=== PATIENT | male | born 1965 | race Caucasian/White ===

== ENCOUNTER 2024-07-04 13:53 | Inpatient (IN) | payer MEDICAID, SELFPAY ==
[2024-07-04] VITALS (9 sets, daily range): BP systolic 121–130; BP diastolic 73–94; PULSE 73–89; RESP 14–96; TEMP 36.4–36.9; O2SAT 95–98; BMI 23.7
--- NOTE | 2024-07-04 14:45 | EKG_ITS ---
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
--- NOTE | 2024-07-04 14:45 | XR_ITS ---
Examination: PA chest single view TECHNIQUE:: Upright PA chest single view Exam date and time: July 04, 2024 at 1504 hours Comparison November 10, 2023 INDICATIONS: Chest pain difficulty breathing today. FINDINGS: Moderate enlargement cardiac contour Prominent vascular congestion Early septal edema at the lung bases Stable position cardiac leads IMPRESSION: Mild CHF
--- NOTE | 2024-07-04 14:51 | PD.EDRME ---
Rapid Medical Screening Exam RME Arrival date/time: 07/04/24 13:53 59-year-old male presents emergency department with complaints of shortness of breath, history of CHF A-fib. I have greeted and performed a focused initial assessment of this patient. Initial appropriate labs ordered at this time. A comprehensive ED assessment and evaluation of the patient and analysis of all test and completion of medical decision making process will be conducted by additional ED provider. Chief Complaint: Shortness of Breath/Dyspnea Time Seen by Provider: 07/04/24 14:13 Vital signs: Vital Signs Temperature 98.5 F 07/04/24 14:22 Pulse Rate 78 07/04/24 14:22 Respiratory Rate 24 H 07/04/24 14:22 Blood Pressure 127/85 H 07/04/24 14:22 Pulse Oximetry (%) 95 07/04/24 14:22 Oxygen Delivery Method Room Air 07/04/24 14:22
[2024-07-04 15:27] LABS: Basophils # (Auto) 0.1 Thou/mm3 (0.0-0.2); Basophils % (Auto) 1 % (0-2.5); Eosinophils % (Auto) 0 % (0-10); Hematocrit 44.3 % (41.0-53.0); Hemoglobin 14.4 g/dL (13.5-16.0); Immature Granulocytes % (Auto) 0 % (0-0); Immature Granulocytes Auto 0.03 Thou/mm3 (0.00-0.00); Lymphocytes % (Auto) 10 % (10-50); Mean Corpuscular HGB Conc 32.5 g/dl (31.0-37.0); Mean Corpuscular Hemoglobin 28.6 pg (25.0-35.0); Mean Corpuscular Volume 88 fL (80-100); Monocytes # (Auto) 0.9 Thou/mm3 (0.0-0.8); Monocytes % (Auto) 9 % (0-12); Neutrophils # (Auto) 7.9 Thou/mm3 (1.8-7.7); Neutrophils % (Auto) 79 % (37-80); Nucleated Red Blood Cell % 0 /100 WBC (0); Platelet Count 275 Thou/mm3 (140-440); RDW Standard Deviation 54.4 fL (35.1-43.9); Red Blood Count 5.03 Miln/mm3 (4.50-5.90)
[2024-07-04 15:44] LABS: INR 1.4 (0.9-1.3); Partial Thromboplastin Time 28.8 Seconds (22.0-36.0); Prothrombin Time 14.6 Seconds (9.0-12.2)
[2024-07-04 16:03] LABS: Alanine Aminotransferase 60 U/L (10-49); Albumin, Serum 4.2 gm/dL (3.4-4.8); Albumin/Globulin Ratio 1.4 (1.2-2.2); Alkaline Phosphatase 177 U/L (46-116); Anion Gap 8 (7-16); Aspartate Amino Transferase 72 U/L (0-34); B-Type Natriuretic Peptide > 3280 pg/mL (0-100); BUN/Creatinine Ratio 22 Ratio (12-20); Blood Urea Nitrogen 55 mg/dL (9-23); Calcium 9.1 mg/dL (8.3-10.6); Calcium (Corrected) 9.1 mg/dL (8.5-10.1); Carbon Dioxide 24.3 mMol/L (20.0-31.0); Chloride 103 mMol/L (98-107); Creatinine (Component) 2.5 mg/dL (0.6-1.3); Estimated Creatinine Clearance 35.1 mL/min (>60); Globulin 3.1 gm/dL (2.3-3.5); Glucose 92 mg/dL (74-106); Lipase 41 U/L (12-53); Magnesium 2.8 mg/dL (1.6-2.6); Osmolality,Calculated 285 (275-295); Potassium 4.9 mMol/L (3.4-5.1); Sodium 135 mMol/L (136-145); Total Protein 7.3 gm/dL (5.7-8.2); eGFR 29 See Note
[2024-07-04 16:16] LABS: Troponin I 0.258 ng/mL (0.0-0.045)
--- NOTE | 2024-07-04 17:41 | PD.EDSOB ---
ED SOB =RME/HPI General Chief Complaint: Shortness of Breath/Dyspnea Stated Complaint: TROUBLE BREATHING FROM CHF Time Seen by Provider: 07/04/24 14:13 Arrival date/time: 07/04/24 13:53 RME / HPI RME / HPI Narrative: 07/04/24 13:53 59-year-old male known case of CHF, A-fib status post pacemaker placement, coronary artery disease status post bypass surgery, hyperlipidemia, came to the ED due to shortness of breath for the past 5 days. Patient reported that his symptoms started with exertional dyspnea however his condition continued to worsen over time and now he has shortness of breath at rest. He also reported severe orthopnea and paroxysmal nocturnal dyspnea associated with increased leg swelling and increased body weight. He reported that he has been using his medications regularly however recently he has been drinking excessive amount of water. Patient denied any chest pain, fever, chills, syncope or presyncopal episodes. Related Data Home Medications ?Medication ?Instructions ?Recorded ?Confirmed Benazepril Hcl * (LOTENSIN *) 10 mg PO QDAY #0 tabs 05/12/16 clopidogrel 75 mg tablet (Plavix) 25 mg PO QDAY #0 tabs 05/12/16 furosemide 20 mg tablet (Lasix) 20 mg PO QDAY #0 tabs 05/12/16 lovastatin 20 mg tablet 20 mg PO HS #0 tabs 05/12/16 metoprolol tartrate 25 mg tablet 25 mg PO BID #0 tabs 05/12/16 potassium chloride 10 mEq 10 meq PO QDAY #0 tabs 05/12/16 tablet,extended release (Klor-Con) Previous Rx's ?Medication ?Instructions ?Recorded Hydrocodone/Acetaminophen * (NORCO 1 - 2 tab PO Q4H PRN PAIN #15 tabs 05/12/16 5/325 *) Sulfamethoxazole/Trimethoprim DS * 1 tab PO BID abscess #14 tabs 05/12/16 (BACTRIM DS *) Allergies Allergy/AdvReac Type Severity Reaction Status Date / Time acetaminophen [From [place]] Allergy Intermediate NAUSEA, Verified 07/04/24 13:56 HALLUCINATE hydrocodone [From [place]] Allergy Intermediate NAUSEA, Verified 07/04/24 13:56 HALLUCINATE ED Exam Narrative Physical exam: GEN: AOx3, able to speak full sentences however looks short of breath, sitting in semisitting position HEENT: NC/AC oral mucosa moist, neck supple CVS: RRR, S1-S2 present, elevated JVD, no murmurs appreciated RESP: Fine crepitations bilaterally GI: soft,non distended, non tender, NBS MSK: able to move all 4 limbs, +3 lower extremity edema SKIN: warm and dry 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 Course Quality Measures none Orders Category Date Time Status Special Education Resource Room Teacher STAT Care 07/04/24 14:45 Active EKG (ED ONLY) *Do not use* NOW Care 07/04/24 14:45 Completed Insert IV STAT Care 07/04/24 14:45 Active EKG (ED Only) Stat Exams 07/04/24 14:45 Draft XR chest 1V portable Stat Exams 07/04/24 14:45 Completed B-Type Natriuretic Peptide Stat Lab 07/04/24 15:12 Completed CBC Stat Lab 07/04/24 15:12 Completed Comprehensive Metabolic Panel Stat Lab 07/04/24 15:12 Completed Lipase Stat Lab 07/04/24 15:12 Completed Magnesium Stat Lab 07/04/24 15:12 Completed Partial Thromboplastin Time Stat Lab 07/04/24 15:12 Completed Prothrombin Time with INR Stat Lab 07/04/24 15:12 Completed Troponin I Stat Lab 07/04/24 15:12 Completed Bumetanide Inj [Bumex Inj] Med 07/04/24 15:04 Discontinued 1 mg IVP X1 ONE Vital Signs Vital signs: Vital Signs Temperature 98.5 F 07/04/24 14:22 Pulse Rate 78 07/04/24 14:22 Respiratory Rate 24 H 07/04/24 14:22 Blood Pressure 127/85 H 07/04/24 14:22 Pulse Oximetry (%) 95 07/04/24 14:22 Oxygen Delivery Method Room Air 07/04/24 14:22 Shortness of Breath / Dyspnea MDM Narrative MDM Narrative:: Patient was found to have CHF exacerbation, troponin at baseline however BNP found to be more than 3200, serum creatinine 2.5, elevated T bilirubin and AST and ALT 3.0, 72, 60 respectively, troponin ,0.258 baseline 0.452 Patient found to have sepsis with exacerbation Patient data External records reviewed:: [facility] previous records Clinical information provided by:: patient Social determinants that could affect healthcare access:: none Patient has the following chronic illnesses:: Hypertension, diabetes CHF, A-fib, coronary artery disease How is presenting disease/condition affected by chronic disease/condition?: caused by Evaluation data The following diagnostics were reviewed and interpreted by me:: lab results, radiology exam(s) and EKG tracing(s) Lab and/or radiology exams considered but not ordered:: None Interpretation Summary: CHF exacerbation Medications / Prescriptions Medications or Prescriptions considered but not ordered:: None Medication administrations:: Medication Administration History Discontinued Medications Bumetanide (Bumetanide Inj 0.25 Mg/Ml Vial 4 Ml) 1 mg IVP X1 ONE Stop: 07/04/24 15:05 As above if given Consultations Consultation(s) initiated? (list below): Yes Diagnosis Shortness of Breath Differential Diagnosis: congestive heart failure and other Most likely diagnosis given after review of the tests above:: CHF exacerbation Admission Indicated Admission indicated?: indicated Admission Request Was there a request for admission?: Yes Admission Attestation Admission request attestation: Discussed case with [] from Hospitalist service regarding admission. Discussed patients ED course, exam findings, labs, and radiology results. The Hospitalist [agrees,declines] to accept the patient for admission. Disposition Plan Disposition Plan: Admit Discharge Plan Plan Patient Disposition: Admit Acute Care w/in Hospital Prescriptions/Referrals Prescriptions/Med Rec: No Action potassium chloride [Klor-Con 10] 10 MEQ tablet extended release 10 meq PO QDAY Qty: 0 clopidogrel [Plavix] 75 MG tablet 25 mg PO QDAY Qty: 0 furosemide [Lasix] 20 MG tablet 20 mg PO QDAY Qty: 0 lovastatin 20 MG tablet 20 mg PO HS Qty: 0 metoprolol tartrate 25 MG tablet 25 mg PO BID Qty: 0 Hydrocodone/Acetaminophen * (NORCO 5/325 *) 1 TAB tablet 1 - 2 tab PO Q4H PRN (Reason: PAIN) Qty: 15 0RF Rx Instructions: FOR PAIN Sulfamethoxazole/Trimethoprim DS * (BACTRIM DS *) 1 TAB tablet 1 tab PO BID Qty: 14 0RF Benazepril Hcl * (LOTENSIN *) 10 MG tablet 10 mg PO QDAY Qty: 0 Referrals: Dom Tineo MD [Primary Care Provider] - In 1 week Problem List Clinical Impression: Congestive heart failure Patient/Caregiver Discharge Instructions Print Language: Kazakh Stand Alone Forms: [employer] Award Info., Patient Portal Info Letter
--- NOTE | 2024-07-04 18:17 | XR_ITS ---
Examination: Abdomen sonogram, Limited Date and time of exam: July 04, 2024 2124 hrs. Indications: Elevated total bilirubin on laboratory examination today right upper abdominal pain Technique: Real-time george scale transabdominal sonographic images of the upper abdomen obtained. Findings: Normal gallbladder Normal common bile duct 0.3 cm Pancreatic head 1.7 cm Liver 17.4 cm smooth contour no focal liver lesions Normal hepatopedal portal venous oh Patent IVC Impression: Normal gallbladder Normal common bile duct Mild hepatomegaly no focal liver lesions
--- NOTE | 2024-07-04 18:27 | EVENTNT_ITS ---
<Statement entered by Karson Leach MD - 07/10/24 17:31> Attending attestation: I reviewed above note and agree with findings and plans. I have also personally examined the patient with medicine team and went over assessment and plan with medical team including [facility] internship and resident physician. Documentation for date of: 07/04/24 Event Note Event Note: Hospitalist team was contacted for evaluation for admission for this patient, patient in ED lobby en route to ED room. In summary, patient is a 59 year old male with history of CHF, atrial fibrillation s/p pacemaker, and CAD s/p bypass surgery who presented to the ED for shortness of breath, was found to have mild CHF on CXR but BNP > 3280. He was noted to have increase in bilateral lower extremities with shortness of breath and elevated BNP, treated with bumex 1mg IV x1. Of note, patient also had total bilirubin of 3.0 and troponin of 0.258. Due to timing of admit call, case has been relayed to on-coming hospitalist nocturnal team who will review the case and consider patient for admission. ED team has been made aware of the pending hospitalist consultation. Patient case discussed with attending physician Dr. Haylee Mckeon, DO PGY-3
[2024-07-04] MEDS: BUMETANIDE INJ 0.25 MG/ML VIAL 4 ML 1 MG IVP (19:11)
--- NOTE | 2024-07-04 20:31 | ECHO_ITS ---
Transthoracic Echo Report Ht (in): 73 Wt (lb): 180 Exam Location: Portable Status: Emergency Rd Scientist: Marly Walker Indications: Procedure Performed: BP: 136 / 88 HR: 83 Technical Quality: Fair MEASUREMENTS (Male / Female) Normal Values 2D ECHO LV Diastolic Diameter PLAX 8.0 cm 4.2 - 5.9 / 3.9 - 5.3 cm LV Systolic Diameter PLAX 7.4 cm IVS Diastolic Thickness 0.8 cm 0.6 - 1.0 / 0.6 - 0.9 cm LVPW Diastolic Thickness 0.9 cm 0.6 - 1.0 / 0.6 - 0.9 cm LV Relative Wall Thickness 0.2 LVOT Diameter 2.1 cm LA Volume Index 68.9 cm?/m? 16 - 28 cm?/m? Ascending Aorta Diameter 2.6 cm M-MODE Aortic Root Diameter MM 2.4 cm LA Systolic Diameter MM 4.7 cm LA Ao Ratio MM 2.0 MV E Point Septal Separation 1.5 cm AV Cusp Separation MM 1.6 cm DOPPLER AV Peak Velocity 306.3 cm/s AV Peak Gradient 37.5 mmHg AV Mean Gradient 21.2 mmHg AV Velocity Time Integral 59.3 cm AI Peak Velocity 500.0 cm/s AI Peak Gradient 100.0 mmHg AI Pressure Half Time 330.0 ms LVOT Peak Velocity 43.8 cm/s LVOT Peak Gradient 0.8 mmHg LVOT Velocity Time Integral 9.0 cm LVOT Cardiac Index 1263.3 cm?/min?m? AV Area Cont Eq vti 0.5 cm? AV Area Cont Eq pk 0.5 cm? MV Peak Velocity 140.0 cm/s MV Peak Gradient 7.8 mmHg MV Mean Velocity 85.6 cm/s MV Mean Gradient 3.0 mmHg MV Area PHT 5.5 cm? MR Peak Velocity 433.0 cm/s MR Peak Gradient 75.0 mmHg Mitral E Point Velocity 143.0 cm/s Mitral A Point Velocity 58.9 cm/s Mitral E to A Ratio 2.4 LV E' Lateral Velocity 3.6 cm/s Mitral E to LV E' Lateral Ratio 39.8 LV E' Septal Velocity 2.7 cm/s Mitral E to LV E' Septal Ratio 52.6 TR Peak Velocity 337.3 cm/s TR Peak Gradient 45.5 mmHg FINDINGS Left Ventricle Severely dilated. Severe systolic dysfunction. Severe global hypokinesis. The ejection fraction is v isually estimated at 15-20%. Right Ventricle The right ventricle is moderatley dilated. RV dysfunction. The estimated right ventricular systolic pressure, 60mmHg. RAP 15. pacing wire present. Left Atrium The left atrium is severely dilatd. Right Atrium The right atrium is severely dilated. Atrial Septum The interatrial septum appears normal with no evidence of a shunt. Aorta The aorta is normal by two-dimensional, color flow and Doppler interrogation. Mitral Valve The mitral valve is mildly MAC. There is mild mitral valve regurgitation. Aortic Valve The aortic valve is trileaflet. Moderate stneosis, mean gradient 24mmHg, vmax 3.4m/s. There is moder ate aortic valve regurgitation. Tricuspid Valve The tricuspid valve is normal by two-dimensional, color flow and Doppler interrogation. There is mod erate tricuspid valve regurgitation. Pulmonic Valve There is mild pulmonic valve regurgitation. Vessels The pulmonary artery appears normal. The inferior vena cava pulmonary and hepatic veins appear mildl y dilated. Pericardium The pericardium is normal by two-dimensional imaging. There is no significant pericardial effusion. CONCLUSIONS Dilated cardiomyopathy markedly dilated left ventricle measuring 7.9 cm severe global hypokinesis ej ection fraction of 15%. Low-flow low gradient severe calcific aortic stenosis with aortic velocity 3.4 m/s peak gradient of 45 mmHg aortic valve area 0.5 cm?. There is also evidence of moderate to severe aortic regurgitation. Mitral valve thickening annulus calcification mild to moderate mitral regurgitation. 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
[2024-07-04] MEDS: CLOPIDOGREL BISULFATE 75 MG TABLET PO (21:01)
--- NOTE | 2024-07-04 21:07 | ESHP_ITS ---
Documentation for date of: 07/04/24 [facility] History of Present Illness History of present illness: CC: Shortness of Breath at rest Patient is a 59-year-old male with a past medical history of hypertension, hyperlipidemia, CHF, atrial fibrillation s/p pacemaker on amiodarone 200 mg daily, and history of CAD status post CABG [address] Tineo in [place] for cardiology, Dr. Barlow for nephrology, and PCP of [facility]. Patient stated increasing shortness of breath began 1 week ago after increasing his water uptake. 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 Patient is unsure of how many bottles of water he was drinking during that time. Noticed 3 to 5 pound weight gain over the past 5 days. Positive for orthopnea, increasing shortness of breath, and noticed some increasing lower extremity edema. Positive for paroxysmal nocturnal orthopnea, patient wakes up short of breath and is affecting his sleep on. Has to prop himself up at night. Stated 1 week ago also had increased chills for over 2 days and an episode of emesis, likely from an upper respiratory tract infection per patient. Patient admitted for CHF exacerbation & Acute BIRD on CKD. ER Course: Vitals: T98.5, HR 78, RR 24, BP 127/85, SpO2 95 RA BNP >3280 Troponin 0.258 Cxr: Moderate enlargement cardiac contou, Prominent vascular congestion, early septal edema at lung bases Renal Function BUN 55 Cr 2.5, GFR 29 AST 72, ALT 60, Alkaline Phosphatase 177 Mg 2.8 Liver U/S-Pending Medication: Bumex 1mg IVP X1 PMH: -HTN -HLD -CHF -CAD/CABG w/ 3 vessels -Afib, w/ pacemaker Home Medication: -Lisinopril 2.5 mg BID hold for BIRD -Levothyroxine 50 mg QDay -Bumex 1 mg BID -Amiodarone 200 mg QDay -Clopidogrel 75 mg HS -Atorvastatin 80 mg HS -Ezetimibe 10 mg QDay Social History: Denied Alcohol Use Denied illicit Drug use Never Smoker Denied Vaping Allergies: Allergic to [place] 5 mg->causes hallucinations. Code Status: Full Code Review of Systems Review of Systems Narrative Review of Systems: General appearance: YES weight change/3-5 lbs within the last week, NO fatigue, NO weakness, NO fever, YES chills for 2 days, this past Sunday , NO night sweats, No cough Skin: YES rash bilaterally on dorsal hands/secondary to lye from concrete, NO itching, NO sores, NO moles HEENT: NO Trauma, NO nausea, YES vomiting w/ chills this past Sunday, NO visual changes, NO blurry vision, NO double vision, NO tinnitus, NO vertigo, NO ear discharge, NO rhinorrhea, NO stuffiness, NO sneezing, NO allergy, NO epistaxis. NO Hoarseness, NO sore throat, NO swollen neck. Cardiac: NO Palpitations, YES dyspnea on exertion, YES orthopnea, YES paroxysmal nocturnal dyspnea, YES edema Respiratory: YES Shortness of Breath, NO Wheezing, YES Cough, NO Sputum, NO hemoptysis GI:YES appetite, NO nausea, YES vomiting (on Sunday), NO dysphagia, NO changes in bowel frequency, NO stool color, NO diarrhea, NO constipation, NO hemetemesis, NO hemorrhoids, NO melena, NO hematechezia, NO abdominal pain, NO jaundice Renal: NO frequency, NO hesitancy, NO urgency, NO hematuria, NO nocturia, NO incontinence MSK: NO muscle weakness, NO gout, NO arthritis, NO muscle stiffness Neuro: NO headaches, NO tremors, NO weakness, NO paralysis, NO seizures, NO loss of consciousness, NO numbness. Hem: NO anemia, NO easy bruising/bleeding, NO petechiae, NO purpura Endo: NO heat/cold intolerance, NO excessive sweating, NO polyuria, NO polydipsia, NO polyphagia, Unsure thyroid problems-does take medication, NO diabetes Pysch: NO mood, NO anxiety, NO depression Exam Vital Signs Temp Pulse Resp BP Pulse Ox O2 Del Method 98.2 F 89 14 130/94 H 96 Room Air 07/04/24 19:15 07/04/24 20:51 07/04/24 20:51 07/04/24 20:51 07/04/24 20:51 07/04/24 20:51 Narrative Exam General Appearance: Alert & Oriented X3, well-nourished male who is lying in bed in no acute distress w/ increased work of breathing but no accessory muscle use HEENT: Skull symmetrical and atraumatic. Conjunctivae pink and moist. Pupils equal, round, reactive to light and accommodation (PERRL). External ear without lesion or discharge. Straight, nares patient, mucosa pink appears dry, no discharge. No thyroid nodule appreciated. No cervical lymphadenopathy. Cardio: Normal Rate and Rhythm with S1 and S2 heart sounds. Possible murmur auscultated and increased at Mitral Area. No bruits on carotid auscultation. Yes peripheral edema, 2+ Lungs: Symmetric with good expansion. Chest and back non-tender. Breath sounds vesicular without crackles, wheezing or rhonchi Abdomen: Non-tender, Non-distended, Normal Reactive Bowel Sounds Neuro: Alert, cooperative, oriented to person, place, and time. Speech clear. CN grossly intact. Upper motor strength 5/5 and Lower motor strength 5/5. Sensation intact. Results: Labs 07/04/24 15:12 07/04/24 15:12 Labs: Short CBC 07/04/24 Range/Units 15:12 WBC 10.0 (3.8-10.6) Thou/mm3 Hgb 14.4 (13.5-16.0) g/dL Hct 44.3 (41.0-53.0) % Plt Count 275 (140-440) Thou/mm3 BMP 07/04/24 15:12 Sodium 135 L Potassium 4.9 Chloride 103 Carbon Dioxide 24.3 BUN 55 H Creatinine 2.5 H Glucose 92 Calcium 9.1 Cardiac Enzymes 07/04/24 Range/Units 15:12 Troponin I 0.258 H* (0.0-0.045) ng/mL Liver Function 07/04/24 Range/Units 15:12 Total Bilirubin 3.0 H (0.3-1.2) mg/dL AST 72 H (0-34) U/L ALT 60 H (10-49) U/L Alkaline Phosphatase 177 H (46-116) U/L Albumin 4.2 (3.4-4.8) gm/dL Quality Measures Quality Measures none Medications Home Medications and Allergies Home Medications ?Medication ?Instructions ?Recorded ?Confirmed ?Type Benazepril Hcl * (LOTENSIN *) 10 mg PO QDAY #0 tabs 05/12/16 History clopidogrel 75 mg tablet (Plavix) 25 mg PO QDAY #0 tabs 05/12/16 07/04/24 History furosemide 20 mg tablet (Lasix) 20 mg PO QDAY #0 tabs 05/12/16 History lovastatin 20 mg tablet 20 mg PO HS #0 tabs 05/12/16 History metoprolol tartrate 25 mg tablet 25 mg PO BID #0 tabs 05/12/16 History potassium chloride 10 mEq 20 meq PO MWF #0 tabs 05/12/16 07/04/24 History tablet,extended release (Klor-Con) B-complex with vitamin C 1 tab PO QDAY 07/04/24 07/04/24 History amiodarone 200 mg tablet 200 mg PO QDAY 07/04/24 07/04/24 History atorvastatin 80 mg tablet 80 mg PO QDAY 07/04/24 07/04/24 History bumetanide 1 mg tablet 1 mg PO BID 07/04/24 07/04/24 History calcitriol 0.5 mcg capsule 0.5 mcg PO QDAY 07/04/24 07/04/24 History ezetimibe 10 mg tablet 10 mg PO QDAY 07/04/24 07/04/24 History levothyroxine 50 mcg tablet 50 mcg PO QDAY 07/04/24 07/04/24 History lisinopril 2.5 mg tablet 2.5 mg PO BID 07/04/24 07/04/24 History Allergies Allergy/AdvReac Type Severity Reaction Status Date / Time acetaminophen [From [place]] Allergy Intermediate NAUSEA, Verified 07/04/24 13:56 HALLUCINATE hydrocodone [From [place]] Allergy Intermediate NAUSEA, Verified 07/04/24 13:56 HALLUCINATE Visit Medications Acetaminophen (Acetaminophen 325 Mg Tablet) 650 mg PO Q6H PRN PRN Reason: Mild Pain 1-3 or Fever >100.4 Stop: 08/03/24 20:27 Amiodarone HCl (Amiodarone Hcl 200 Mg Tablet) 200 mg PO QDAY CHARAN Stop: 08/04/24 08:59 Atorvastatin Calcium (Atorvastatin Calcium 20 Mg Tablet) 80 mg PO HS CHARAN Stop: 08/04/24 20:59 Bumetanide (Bumetanide Inj 0.25 Mg/Ml Vial 4 Ml) 1 mg IVP BIDD CHARAN Stop: 08/04/24 05:59 Clopidogrel Bisulfate (Clopidogrel Bisulfate 75 Mg Tablet) 75 mg PO HS CHARAN Stop: 08/03/24 20:59 Last Admin: 07/04/24 21:01 Dose: 75 mg Ezetimibe (Ezetimibe 10 Mg Tablet) 10 mg PO QDAY [facility] Stop: 08/04/24 08:59 Levothyroxine Sodium (Levothyroxine Sodium 25 Mcg Tablet) 50 mcg PO ACBR [facility] Stop: 08/04/24 05:59 Ondansetron HCl (Ondansetron Inj 2 Mg/Ml Inj 2 Ml) 4 mg IV Q6H PRN; Protocol PRN Reason: NAUSEA OR VOMITING Stop: 08/03/24 20:27 Potassium Chloride (Potassium Chloride 20 Meq Tabcr) 10 meq PO QDAY CHARAN Stop: 08/04/24 08:59 Discontinued Medications Bumetanide (Bumetanide Inj 0.25 Mg/Ml Vial 4 Ml) 1 mg IVP X1 ONE Stop: 07/04/24 15:05 Last Admin: 07/04/24 19:11 Dose: 1 mg Assessment & Plan Plan Patient is a 59-year-old male with a past medical history of hypertension, hyperlipidemia, CHF, atrial fibrillation s/p pacemaker on amiodarone 200 mg daily, and history of CAD status post CABG 3 vessels. Patient presented to emergency room with a chief complain of dyspnea over 1 week and admitted for CHF exacerbation & Acute BIRD on CKD. 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 About 1 week ago patient also experienced some chills and emesis which he attributes to a possible viral infection. Positive for orthopnea and paroxysmal nocturnal dyspnea. Positive for dyspnea and tachypnea during physical exam, RR 30. Cxr showed pulmonary vascular congestion. BNP >3280 DDx: Given history of CAD w/ CABG, arrhythmia or IL can not be ruled out. Possible murmur heard on physical exam. Troponinemia, likely NSTEMI Type II, demand ischemia secondary to CHF exacerbation. Hyperthyroidism less likely given no bradycardia or tachycardia on admission but can not be ruled out as patient is on Amio and on levothyroxine. Diagnostic: Vitals: T98.5, HR 78, RR 24, BP 127/85, SpO2 95 RA BNP >3280 Troponin 0.258 Cxr: Moderate enlargement cardiac contou, Prominent vascular congestion, early septal edema at lung bases Renal Function BUN 55 Cr 2.5, GFR 29 NYHA Class: II Well's Criteria 0 Plan: -Bumex 1 mg IVP BID -Amiodarone 200 mg PO QDay -Potassium Chloride 10 meq QDay -Atorvastatin 80 mg HS -Plavix -Ezetimibe 10 mg PO QDay -CBC -CMP -Mg and Phosphorous AM -Echo -Troponin for 9 PM -TSH -Lipid Panel -K>4 and Mg >2 -Fluid Restriction 1800 ml Per day -SpO <90%, support PRN -Daily Weights, Strict Ins and Outs, Fluid Striction (1800 ml) -Cardiac Diet -Cardiology Consult, appreciate recommendations. #BIRD on CKD #HTN Etiology: patient follow Dr. Barlow for CKD, which patient stated had improved during previous outpatient visit, patient unsure of CKD Stage. Previous Cr 1.7, October 2023 which is an increase from today's admission of 2.5. BUN/Cr ration of 22, likely pre-renal given ratio and CHF exacerbation. DDx: Pre-renal Cardio-renal can not be ruled out given history of CKD and CHF. Obstructive BIRD can not be ruled out as patient stated he has had increased urinary hesitation but no pain with urination or hematuria. Diagnostic: Renal Function BUN 55 Cr 2.5, GFR 29, Plan -Given CHF exacerbation, currently fluid restricted. Consider fluids as patient improves but is able to drink -Hold home medication of Lisinopril -Avoid Nephrotoxins -Monitor BUN and Cr -Consider consult w/ Dr. Barlow -consider bladder scan if patient is not producing urine #Transaminitis Etiology: Likely secondary to CHF exacerbation DDx: Iatrogenic cause can not be ruled out given Amio medication. Hepatitis can not be rule out but less likely given denied use of illicit drug. Diagnostics: AST 72 ALT 60 Alkaline Phos 177 Plan -Liver U/S -Consider GGT -Consider utox -Consider Hepatitis panel #Hyperlipedemia #CAD w/ CABG 3 vessels Resume home medication of Atorvastatin high intensity and Ezetimibe. Plan for lipid panel in AM. Health Maintenance: Disp: Pt is currently admitted to floors for further management of CHF exacerbation, awaiting echo. FEN: Cardiac diet DVT: compression Code: Full code - The patient's plan was discussed with attending Dr. Isela Cardona MD PGY1 Internal Medicine Attending Provider Attestation/Addendum 59-year-old male patient with coronary artery disease status post triple CABG, chronic kidney disease, hypertension, chronic atrial fibrillation on anticoagulation, status post pacemaker, was admitted because of shortness of breath, weight gain during the last few days. The patient has no chest pain no fever he has minimal cough. Chest x-ray showed pulmonary congestion cardiomegaly. EKG showed pacemaker rhythm. The patient has elevated BNP, troponin 0.258, BUN is 55 creatinine of 2.5. The patient is not confused. He is short of breath at rest. He has PND and orthopnea. Patient is being admitted for CHF decompensation. He will receive IV diuretic treatment. Cardiology evaluation will be requested. Troponins will be trended. Monitor intake and output. Monitor daily weight..
[2024-07-04 21:09] LABS: Collection Type, Urine Clean Catch; WBC,Urine 0 /hpf (0-5)
[2024-07-04 21:13] LABS: Bilirubin,Urine Negative (Negative); Blood,Urine Negative (Negative); Clarity,Urine Clear (Clear/Hazy); Color,Urine Lt-Yellow (Lt Yel-Yel); Glucose, Urine Negative (Negative); Hyaline Casts,Urine < 1 /hpf (0-1); Ketones,Urine Negative (Negative); Leukocyte Esterase,Urine Negative (Negative); Nitrite,Urine Negative (Negative); PH,Urine 6.5 (5.0-7.0); Protein,Urine Trace (Neg - Trace); RBC,Urine 2 /hpf (0-3); Specific Gravity,Urine 1.012 (1.001-1.035); Squamous Epithelial Cell,Urine < 1 /hpf (0-5); Urobilinogen,Urine Negative mg/dL (0.0-1.0)
[2024-07-04 21:44] LABS: Troponin I 0.248 ng/mL (0.0-0.045)
[2024-07-05] VITALS (15 sets, daily range): BP systolic 123–143; BP diastolic 71–91; PULSE 65–95; RESP 16–98; TEMP 36.3–36.7; O2SAT 97–100; BMI 23.3; BMI 23.4
[2024-07-05 00:37] LABS: Troponin I 0.234 ng/mL (0.0-0.045)
[2024-07-05] MEDS: BUMETANIDE INJ 0.25 MG/ML VIAL 4 ML 1 MG IVP (05:27)
[2024-07-05] MEDS: LEVOTHYROXINE SODIUM 25 MCG TABLET 50 MCG PO (05:28)
[2024-07-05 06:24] LABS: Basophils # (Auto) 0.1 Thou/mm3 (0.0-0.2); Basophils % (Auto) 1 % (0-2.5); Eosinophils # (Auto) 0.1 Thou/mm3 (0.0-0.5); Eosinophils % (Auto) 1 % (0-10); Hematocrit 40.4 % (41.0-53.0); Hemoglobin 13.1 g/dL (13.5-16.0); Immature Granulocytes % (Auto) 0 % (0-0); Immature Granulocytes Auto 0.03 Thou/mm3 (0.00-0.00); Lymphocytes # (Auto) 1.1 Thou/mm3 (1.0-4.8); Lymphocytes % (Auto) 12 % (10-50); Mean Corpuscular HGB Conc 32.4 g/dl (31.0-37.0); Mean Corpuscular Hemoglobin 28.5 pg (25.0-35.0); Mean Corpuscular Volume 88 fL (80-100); Monocytes # (Auto) 0.9 Thou/mm3 (0.0-0.8); Monocytes % (Auto) 10 % (0-12); Neutrophils % (Auto) 77 % (37-80); Nucleated Red Blood Cell % 0 /100 WBC (0); Platelet Count 226 Thou/mm3 (140-440); RDW Standard Deviation 53.9 fL (35.1-43.9); Red Blood Count 4.59 Miln/mm3 (4.50-5.90); White Blood Count 9.1 Thou/mm3 (3.8-10.6)
[2024-07-05 06:48] LABS: Alanine Aminotransferase 69 U/L (10-49); Albumin, Serum 3.7 gm/dL (3.4-4.8); Albumin/Globulin Ratio 1.4 (1.2-2.2); Alkaline Phosphatase 230 U/L (46-116); Anion Gap 7 (7-16); Aspartate Amino Transferase 78 U/L (0-34); BUN/Creatinine Ratio 25 Ratio (12-20); Bilirubin,Total 2.6 mg/dL (0.3-1.2); Blood Urea Nitrogen 66 mg/dL (9-23); Calcium 8.9 mg/dL (8.3-10.6); Calcium (Corrected) 9.1 mg/dL (8.5-10.1); Carbon Dioxide 24.9 mMol/L (20.0-31.0); Cardiac Risk Estimate 2.7 RATIO (4.0-6.7); Chloride 105 mMol/L (98-107); Cholesterol 78 mg/dL (132-200); Creatinine (Component) 2.6 mg/dL (0.6-1.3); Estimated Creatinine Clearance 33.7 mL/min (>60); Globulin 2.7 gm/dL (2.3-3.5); Glucose 84 mg/dL (74-106); HDL Cholesterol 29 mg/dL (40-60); LDL Cholesterol,Calculated 40 mg/dL (0-130); Magnesium 2.8 mg/dL (1.6-2.6); Osmolality,Calculated 291 (275-295); Phosphorous 4.3 mg/dL (2.4-5.1); Potassium 4.2 mMol/L (3.4-5.1); Sodium 137 mMol/L (136-145); Total Protein 6.4 gm/dL (5.7-8.2); Triglycerides 45 mg/dL (30-150); eGFR 27 See Note
[2024-07-05 09:27] LABS: Free T4 (Free Thyroxine) 1.33 ng/dL (0.89-1.76)
[2024-07-05] MEDS: AMIODARONE HCL 200 MG TABLET PO (09:28)
[2024-07-05] MEDS: EZETIMIBE 10 MG TABLET PO (09:28)
[2024-07-05] MEDS: BUMETANIDE INJ 0.25 MG/ML VIAL 4 ML 2 MG IVP ×2 (09:29→17:46)
[2024-07-05] MEDS: POTASSIUM CHLORIDE 10% 20 MEQ/15 ML UDC 10 MEQ PO (09:29)
--- NOTE | 2024-07-05 09:51 | PC.SS ---
Regis Healy is a 59-year-old male admitted to [facility] for CHF Exacerbation. SS conducted bedside contact with the patient to complete initial assessment and to discuss discharge planning. Patient confirmed demographic information. Patient identifies his sister Pilar Menezes [phone] as his surrogate decision maker. Patient resides at home alone. Pt states he is typically able to complete all ADL?s independently, no need for any source of DME. Pts PCP is Dr. Dom Tineo (last visit about 2 weeks ago) and pharmacy of choice is [facility]. DC option discussed and pt wishes to return home. Pts family will provide transportation upon DC. No further intervention required at this time, social worker psychiatric would be available to address any further concerns. DC Plan: Home Contact: Pilar Menezes [phone] PCP: Rivka
[2024-07-05] MEDS: ACETAMINOPHEN 325 MG TABLET 650 MG PO (14:36)
[2024-07-05] MEDS: SPIRONOLACTONE 25 MG TABLET PO (14:36)
--- NOTE | 2024-07-05 15:15 | ESCONSULT_ITS ---
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 Patient apparently had ejection fraction only 20% normally followed by Dr. Tineo in [place]. I reviewed the findings and agree with the treatment plan recommendation as documented by PGY 2 Dr. Nickerson will get a cardiac echo reviewed the findings upon completion. 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 Tineo in [place] for cardiology, Dr. Barlow for nephrology, and PCP of [facility]. Patient stated increasing shortness of breath began 1 week ago after increasing his water uptake. 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 He noticed 3 to 5 pound weight gain over the past 5 days. Patient did had symptoms of orthopnea, shortness of breath, lower extremity swelling. He did endorse some chills from last 2 days. In the ED, patient was afebrile, had stable blood pressure and heart rate. He was saturating well on room air. Pertinent labs showed elevated BNP above 3280, troponin I 0.258. Chest x-ray showed moderate enlargement cardiac contour, prominent vascular congestion, early septal edema at lung bases. Renal function showed BUN 55 and creatinine 2.5. GFR 29. Admitted for CHF exacerbation. PMH: As above SH: Denies smoking or drinking alcohol. Allergies NKDA Home medications: Lisinopril 12.5 mg twice daily, levothyroxine 50 mcg, Bumex 1 mg twice daily, amiodarone 200 mg once a day, clopidogrel 75 mg at bedtime, atorvastatin 80 mg at bedtime and ezetimibe 10 mg daily Cardiology team consulted for heart failure exacerbation. Patient reported that he came with shortness of breath and was drinking more than usual water ended up gaining extra pounds. Patient does have extensive cardiac history and reported to follow-up with Dr. Tineo in [place]. Current recommendations are to continue Bumex 2 mg IV twice daily, continue amiodarone 200 mg once a day, started spironolactone 25 mg once a day patient's home medication.Recommended to continue Plavix and ezetimibe. Stop trending troponin I as they downtrended. Continue fluid restriction, strict IAN's and daily weight. Patient will need heart failure medication optimization before discharge. Rest of the management as per primary care team. All labs and orders were reviewed. Cardiology will follow the case closely. cc:: cc: Jorge Weiss MD Review of Systems Review of Systems Systems Reviewed: All systems reviewed, normal except as documented Exam Vital Signs Temp Pulse Resp BP Pulse Ox O2 Del Method O2 Flow Rate 97.4 F 68 17 137/82 H 100 Nasal Cannula 1 07/05/24 12:00 07/05/24 14:36 07/05/24 12:00 07/05/24 14:36 07/05/24 12:00 07/05/24 12:00 07/05/24 12:00 Narrative Exam GENERAL APPEARANCE: Patient is AOx3, generally well-appearing male in no acute distress. Saturating well on 1 L NC. HEENT: NC, AT. MMM. EOMI, clear conjunctiva, oropharynx clear. NECK: Supple without lymphadenopathy. No stiffness or restricted ROM. HEART: Regular rate and regular rhythm, normal S1/S2, mitral valve regurgitation murmur heard on apex LUNGS: CTAB, moving air well. No crackles or wheezes are heard. ABDOMEN: Soft, nontender, nondistended with good bowel sounds heard. BACK: No CVAT, no obvious deformity. EXTREMITIES: Trace edema noticed on both lower extremities. NEUROLOGICAL: Grossly nonfocal. Alert and oriented, moving all 4 extremities. CN not formally tested but appear grossly intact. Observed to ambulate with normal gait. Skin: Warm and dry without any rash. Psych: Appropriate mood and affect Results Labs 07/05/24 06:02 07/05/24 06:02 Labs: Short CBC 07/04/24 07/05/24 Range/Units 15:12 06:02 WBC 10.0 9.1 (3.8-10.6) Thou/mm3 Hgb 14.4 13.1 L (13.5-16.0) g/dL Hct 44.3 40.4 L (41.0-53.0) % Plt Count 275 226 D (140-440) Thou/mm3 BMP 07/04/24 07/05/24 15:12 06:02 Sodium 135 L 137 Potassium 4.9 4.2 D Chloride 103 105 Carbon Dioxide 24.3 24.9 BUN 55 H 66 H Creatinine 2.5 H 2.6 H Glucose 92 84 Calcium 9.1 8.9 Cardiac Enzymes 07/04/24 07/04/24 07/04/24 Range/Units 15:12 21:02 23:45 Troponin I 0.258 H* 0.248 H* 0.234 H* (0.0-0.045) ng/mL Liver Function 07/04/24 07/05/24 Range/Units 15:12 06:02 Total Bilirubin 3.0 H 2.6 H (0.3-1.2) mg/dL AST 72 H 78 H (0-34) U/L ALT 60 H 69 H (10-49) U/L Alkaline Phosphatase 177 H 230 H D (46-116) U/L Albumin 4.2 3.7 D (3.4-4.8) gm/dL Urine 07/04/24 Range/Units 21:02 Urine Color Lt-Yellow (Lt Yel-Yel) Urine Clarity Clear (Clear/Hazy) Urine pH 6.5 (5.0-7.0) Ur Specific [place] 1.012 (1.001-1.035) Urine Protein Trace (Neg - Trace) Urine Glucose (UA) Negative (Negative) Quality Measures Quality Measures VTE prophylaxis Medications Home Medications and Allergies Home Medications ?Medication ?Instructions ?Recorded ?Confirmed ?Type Benazepril Hcl * (LOTENSIN *) 10 mg PO QDAY #0 tabs 05/12/16 History clopidogrel 75 mg tablet (Plavix) 25 mg PO QDAY #0 tabs 05/12/16 07/04/24 History furosemide 20 mg tablet (Lasix) 20 mg PO QDAY #0 tabs 05/12/16 History lovastatin 20 mg tablet 20 mg PO HS #0 tabs 05/12/16 History metoprolol tartrate 25 mg tablet 25 mg PO BID #0 tabs 05/12/16 History potassium chloride 10 mEq 20 meq PO MWF #0 tabs 05/12/16 07/04/24 History tablet,extended release (Klor-Con) B-complex with vitamin C 1 tab PO QDAY 07/04/24 07/04/24 History amiodarone 200 mg tablet 200 mg PO QDAY 07/04/24 07/04/24 History atorvastatin 80 mg tablet 80 mg PO QDAY 07/04/24 07/04/24 History bumetanide 1 mg tablet 1 mg PO BID 07/04/24 07/04/24 History calcitriol 0.5 mcg capsule 0.5 mcg PO QDAY 07/04/24 07/04/24 History ezetimibe 10 mg tablet 10 mg PO QDAY 07/04/24 07/04/24 History levothyroxine 50 mcg tablet 50 mcg PO QDAY 07/04/24 07/04/24 History lisinopril 2.5 mg tablet 2.5 mg PO BID 07/04/24 07/04/24 History Allergies Allergy/AdvReac Type Severity Reaction Status Date / Time hydrocodone [From [place]] Allergy Intermediate NAUSEA, Verified 07/04/24 13:56 HALLUCINATE Visit Medications Acetaminophen (Acetaminophen 325 Mg Tablet) 650 mg PO Q6H PRN PRN Reason: Mild Pain 1-3 or Fever >100.4 Stop: 08/03/24 20:27 Last Admin: 07/05/24 14:36 Dose: 650 mg Amiodarone HCl (Amiodarone Hcl 200 Mg Tablet) 200 mg PO QDAY CHARAN Stop: 08/04/24 08:59 Last Admin: 07/05/24 09:28 Dose: 200 mg Atorvastatin Calcium (Atorvastatin Calcium 20 Mg Tablet) 80 mg PO HS CHARAN Stop: 08/04/24 20:59 Bumetanide (Bumetanide Inj 0.25 Mg/Ml Vial 4 Ml) 2 mg IVP BIDD CHARAN Stop: 08/04/24 08:59 Last Admin: 07/05/24 09:29 Dose: 2 mg Clopidogrel Bisulfate (Clopidogrel Bisulfate 75 Mg Tablet) 75 mg PO HS CHARAN Stop: 08/03/24 20:59 Last Admin: 07/04/24 21:01 Dose: 75 mg Ezetimibe (Ezetimibe 10 Mg Tablet) 10 mg PO QDAY CHARAN Stop: 08/04/24 08:59 Last Admin: 07/05/24 09:28 Dose: 10 mg Levothyroxine Sodium (Levothyroxine Sodium 25 Mcg Tablet) 50 mcg PO ACBR CHARAN Stop: 08/04/24 05:59 Last Admin: 07/05/24 05:28 Dose: 50 mcg Ondansetron HCl (Ondansetron Inj 2 Mg/Ml Inj 2 Ml) 4 mg IV Q6H PRN; Protocol PRN Reason: NAUSEA OR VOMITING Stop: 08/03/24 20:27 Potassium Chloride (Potassium Chloride 10% 20 Meq/15 Ml Udc) 10 meq PO QDAY CHARAN Stop: 08/04/24 09:14 Last Admin: 07/05/24 09:29 Dose: 10 meq Spironolactone (Spironolactone 25 Mg Tablet) 25 mg PO QDAY CHARAN Stop: 08/04/24 13:29 Last Admin: 07/05/24 14:36 Dose: 25 mg Discontinued Medications Bumetanide (Bumetanide Inj 0.25 Mg/Ml Vial 4 Ml) 1 mg IVP X1 ONE Stop: 07/04/24 15:05 Last Admin: 07/04/24 19:11 Dose: 1 mg Bumetanide (Bumetanide Inj 0.25 Mg/Ml Vial 4 Ml) 1 mg IVP BIDD CHARAN Stop: 08/04/24 05:59 Last Admin: 07/05/24 05:27 Dose: 1 mg Potassium Chloride (Potassium Chloride 20 Meq Tabcr) 10 meq PO QDAY CHARAN Stop: 08/04/24 08:59 Potassium Chloride (Potassium Chloride 10% 20 Meq/15 Ml Udc) 10 meq PO QDAY CHARAN Stop: 08/04/24 08:59 Assessment & Plan Plan Patient is a 59-year-old male with a past medical history of hypertension, hyperlipidemia, CHF, 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 Tineo in [place] for cardiology, Dr. Barlow for nephrology, and PCP of [facility] presented with worsening shortness of breath and lower extremity swelling from last 1 week due to increased water intake. In the ED, patient was afebrile, had stable blood pressure and heart rate. He was saturating well on room air. Pertinent labs showed elevated BNP above 3280, troponin I 0.258. Chest x-ray showed moderate enlargement cardiac contour, prominent vascular congestion, early septal edema at lung bases. Renal function showed BUN 55 and creatinine 2.5. GFR 29.Cardiology team consulted for heart failure exacerbation. Patient reported that he came with shortness of breath and was drinking more than usual water ended up gaining extra pounds. Recommended to continue Bumex 2 mg IV twice daily, continue amiodarone 200 mg once a day, started spironolactone 25 mg once a day patient's home medication. # Acute on chronic CHF exacerbation # History of CAD s/p stents and CABG ?Patient presented with worsening shortness of breath and lower extremity swelling. He increased intake of water and gained extra pounds. Chest x-ray showed moderate enlargement cardiac contour, prominent vascular congestion and early septal edema at lung bases. Kidney functions showed creatinine 2.5 and GFR 29. Initial elevated BNP. Plan: ?Continue IV Bumex 2 mg twice daily ? Continue patient's home medication Plavix 75 mg and ezetimibe 10 mg once a day ? Added spironolactone 25 mg once a day ? Continue fluid restriction, strict IAN's and daily weight ? Replete electrolytes as necessary ? Daily labs ? Monitor vitals closely # A-fib, rate controlled on amiodarone status post RIGGING WORKER?D ? EKG showed electrical ventricular pacemaker. QTc 505. ?[id number] score 2 Plan: ? Continue amiodarone 200 mg once a day ? Replete electrolytes as necessary ? Keep magnesium above 2 and potassium above 4 ? Monitor EKG for A-fib with RVR # NSTEMI type II likely supply demand ischemia ? Initially troponin was elevated at 0.248 downtrended to 0.234 Plan: ? Monitor for signs of chest pain ? Stop trending troponin I ? Monitor EKG #Hx HTN # History of hyperlipidemia Plan: ? Holding antihypertensives [lisinopril] given BIRD on CKD ?Continue ezetimibe 10 mg once a day #Congestive hepatopathy likely related to CHF ?AST and ALT elevated with ALP elevation Plan: ? Continue IV diuresis therapy ? Trend LFTs ? Avoid hepatotoxic agents Other active problems: #BIRD on CKD stage IIIb # Normocytic hypochromic anemia # hypermagnesemia # Subclinical hypothyroidism Rest of the management as per primary care team. Thank you very much for consulting cardiology team. Patient was seen and discussed with terminal worker, Dr. Tommy Nickerson MD, PGY 2
--- NOTE | 2024-07-05 15:27 | ESPR_ITS ---
<Statement entered by Anjelica Kenny MD - 07/05/24 15:29> Senior Resident Attestation: I supervised/discussed management plan with resident physician Dr. Parnell, and was involved in the care of this patient. I personally saw and examined the patient and discussed the assessment and plan with the entire medicine team, including my attending. I agree with the assessment and plan as documented. Patient's care was discussed with attending physician, Dr. Swapnil Kenny MD PGY-3 Documentation for date of: 07/05/24 Subjective Subjective Interval history: Patient seen at bedside. No acute overnight events. He is a 59-year-old male with a past medical history of hypertension, hyperlipidemia, CHF, A-fib status post pacemaker, CKD, CAD status post CABG who presented to the ED on 07/04/2024 with complaints of shortness of breath, orthopnea, PND and bilateral pitting edema 1 week duration. He also complained of difficulty urination with weak stream. Patient was started on IV Bumex 2 mg twice daily and a Whelan catheter was passed into suspicion of obstruction. Creatinine still elevated at 2.6 today. Transaminitis resolving. TSH is elevated, ordered free thyroxine which returned normal. [facility] Dr. Sanders consulted, will add spironolactone 25 mg daily pending echocardiogram. 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 Eyes open, symmetrical, & clear, nasal cannula in-situ CARDIO: No chest pain on palpation. Heart RRR, no obvious murmurs PULM: No noted coughing/dyspnea. Mild crackles bilaterally, saturating 97% on 1L GI: Abdomen soft, nondistended, no pain on palpation. 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 Whelan catheter in situ SKIN/MSK/EXT: Bilateral pitting edema 1+-resolving Objective Labs 07/05/24 06:02 07/05/24 06:02 Labs: Laboratory Results - last 24 hr 07/04/24 07/04/24 07/04/24 15:12 21:02 23:45 WBC 10.0 RBC 5.03 Hgb 14.4 Hct 44.3 MCV 88 MCH 28.6 MCHC 32.5 RDW Std Deviation 54.4 H Plt Count 275 Neut % (Auto) 79 Lymph % (Auto) 10 [place] % (Auto) 9 Eos % (Auto) 0 Baso % (Auto) 1 Neut # (Auto) 7.9 H Lymph # (Auto) 1.0 [place] # (Auto) 0.9 H Eos # (Auto) 0.0 Baso # (Auto) 0.1 Immature Gran # (Auto) 0.03 H Absolute Nucleated RBC 0.00 Immature Gran % 0 Nucleated RBC % 0 PT 14.6 H INR 1.4 H APTT 28.8 Sodium 135 L Potassium 4.9 Chloride 103 Carbon Dioxide 24.3 Anion Gap 8 BUN 55 H Creatinine 2.5 H Estim Creat Clear Calc 35.1 L eGFR 29 L BUN/Creatinine Ratio 22 H Glucose 92 Calculated Osmolality 285 Calcium 9.1 Corrected Calcium 9.1 Phosphorus Magnesium 2.8 H Total Bilirubin 3.0 H AST 72 H ALT 60 H Alkaline Phosphatase 177 H Troponin I 0.258 H* 0.248 H* 0.234 H* B-Natriuretic Peptide > 3280 H* Total Protein 7.3 Albumin 4.2 Globulin 3.1 Albumin/Globulin Ratio 1.4 Triglycerides Cholesterol LDL Cholesterol, Calc HDL Cholesterol Cholesterol/HDL Ratio Lipase 41 TSH Free T4 Ur Collection Type Clean Catch Urine Color Lt-Yellow Urine Clarity Clear Urine pH 6.5 Ur Specific [place] 1.012 Urine Protein Trace Urine Glucose (UA) Negative Urine Ketones Negative Urine Blood Negative Urine Nitrite Negative Urine Bilirubin Negative Urine Urobilinogen (Auto) Negative Ur Leukocyte Esterase Negative Urine RBC 2 Urine WBC 0 Ur Squamous Epith Cells < 1 Urine Bacteria None Hyaline Casts < 1 07/05/24 06:02 WBC 9.1 RBC 4.59 Hgb 13.1 L Hct 40.4 L MCV 88 MCH 28.5 MCHC 32.4 RDW Std Deviation 53.9 H Plt Count 226 D Neut % (Auto) 77 Lymph % (Auto) 12 [place] % (Auto) 10 Eos % (Auto) 1 Baso % (Auto) 1 Neut # (Auto) 7.0 Lymph # (Auto) 1.1 [place] # (Auto) 0.9 H Eos # (Auto) 0.1 Baso # (Auto) 0.1 Immature Gran # (Auto) 0.03 H Absolute Nucleated RBC 0.00 Immature Gran % 0 Nucleated RBC % 0 PT INR APTT Sodium 137 Potassium 4.2 D Chloride 105 Carbon Dioxide 24.9 Anion Gap 7 BUN 66 H Creatinine 2.6 H Estim Creat Clear Calc 33.7 L eGFR 27 L BUN/Creatinine Ratio 25 H Glucose 84 Calculated Osmolality 291 Calcium 8.9 Corrected Calcium 9.1 Phosphorus 4.3 Magnesium 2.8 H Total Bilirubin 2.6 H AST 78 H ALT 69 H Alkaline Phosphatase 230 H D Troponin I B-Natriuretic Peptide Total Protein 6.4 Albumin 3.7 D Globulin 2.7 Albumin/Globulin Ratio 1.4 Triglycerides 45 Cholesterol 78 L LDL Cholesterol, Calc 40 HDL Cholesterol 29 L Cholesterol/HDL Ratio 2.7 L Lipase TSH 9.10 H Free T4 1.33 Ur Collection Type Urine Color Urine Clarity Urine pH Ur Specific [place] Urine Protein Urine Glucose (UA) Urine Ketones Urine Blood Urine Nitrite Urine Bilirubin Urine Urobilinogen (Auto) Ur Leukocyte Esterase Urine RBC Urine WBC Ur Squamous Epith Cells Urine Bacteria Hyaline Casts Quality Measures Quality Measures VTE prophylaxis Assessment & Plan Assessment Current Active Medications: Generic Name Dose Route Start Last Admin Trade Name Freq PRN Reason Stop Dose Admin Acetaminophen 650 mg 07/04/24 20:28 07/05/24 14:36 Acetaminophen 325 Mg Tablet PO 08/03/24 20:27 650 mg Q6H PRN Administration Mild Pain 1-3 or Fever >100.4 Amiodarone HCl 200 mg 07/05/24 09:00 07/05/24 09:28 Amiodarone Hcl 200 Mg Tablet PO 08/04/24 08:59 200 mg QDAY CHARAN Administration Atorvastatin Calcium 80 mg 07/05/24 21:00 Atorvastatin Calcium 20 Mg Tablet PO 08/04/24 20:59 HS CHARAN Bumetanide 2 mg 07/05/24 09:00 07/05/24 09:29 Bumetanide Inj 0.25 Mg/Ml Vial 4 Ml IVP 08/04/24 08:59 2 mg BIDD CHARAN Administration Clopidogrel Bisulfate 75 mg 07/04/24 21:00 07/04/24 21:01 Clopidogrel Bisulfate 75 Mg Tablet PO 08/03/24 20:59 75 mg HS CHARAN Administration Ezetimibe 10 mg 07/05/24 09:00 07/05/24 09:28 Ezetimibe 10 Mg Tablet PO 08/04/24 08:59 10 mg QDAY CHARAN Administration Levothyroxine Sodium 50 mcg 07/05/24 06:00 07/05/24 05:28 Levothyroxine Sodium 25 Mcg Tablet PO 08/04/24 05:59 50 mcg ACBR CHARAN Administration Ondansetron HCl 4 mg 07/04/24 20:28 Ondansetron Inj 2 Mg/Ml Inj 2 Ml IV 08/03/24 20:27 Q6H PRN NAUSEA OR VOMITING Protocol Potassium Chloride 10 meq 07/05/24 09:15 07/05/24 09:29 Potassium Chloride 10% 20 Meq/15 Ml Udc PO 08/04/24 09:14 10 meq QDAY CHARAN Administration Spironolactone 25 mg 07/05/24 13:30 07/05/24 14:36 Spironolactone 25 Mg Tablet PO 08/04/24 13:29 25 mg QDAY CHARAN Administration Plan Summary: The patient is a 59-year-old male with a past medical history of hypertension, hyperlipidemia, CHF, atrial fibrillation s/p ICD on amiodarone 200 mg daily, and history of CAD status post CABG [address] Tineo in [place] for cardiology, Dr. Barlow for nephrology, and PCP of [facility] presented with worsening shortness of breath and lower extremity swelling from last 1 week due to increased water intake. Lab and imagin finding suppportive of clinical diagnosis of CHF eacerbation #Acute hypoxic respiratory failure #Acute decompensated heart disease #History of CAD s/p stents and CABG Patient presented with worsening shortness of breath, orthopnea, PND and lower extremity swelling. He increased intake of water and gained extra 5 pounds in the last week. Chest x-ray showed moderate enlargement cardiac contour, prominent vascular congestion and early septal edema at lung bases. Kidney functions showed creatinine 2.5 and GFR 29. Initial elevated BNP. At home, patient is on Bumex 1 g twice daily and spironolactone 25 mg daily In the ED, was given IV Bumex 1 mg x 1 Cardiology consulted, echocardiogram pending. Plan: ?Continue IV Bumex 2 mg twice daily ? Continue patient's home medication Plavix 75 mg and ezetimibe 10 mg once a day ? Added spironolactone 25 mg once a day ? Continue fluid restriction, strict IAN's and daily weight ? Replete electrolytes as necessary ? Daily labs ? Monitor vitals closely #BIRD on CKD, cardiorenal versus postrenal The patient has a history of CKD, possibly stage IV and is being followed by Dr. Barlow as an outpatient. He reports difficulty with urination and weak stream in the last 1 week. Patient has no history of BPH or any urological procedures and has not seen urology for similar symptoms. Whelan catheter was passed and patient immediately experienced 200 cc of urine. Plan: -Monitor urine output via whelan -Consider Flomax -Avoid nephrotoxic medications # A-fib, rate controlled on amiodarone status post ICD ? EKG showed electrical ventricular pacemaker. QTc 505. ?[id number] score 2 Role of Eliquis with a score is debatable, will leave to cardiology. Plan: ? Continue amiodarone 200 mg once a day ? Replete electrolytes as necessary ? Keep magnesium above 2 and potassium above 4 ? Monitor EKG for A-fib with RVR # NSTEMI type II likely supply demand ischemia ? Initially troponin was elevated at 0.248 downtrended to 0.234 Plan: ? Monitor for signs of chest pain ? Stop trending troponin I ? Monitor EKG #Hx HTN # History of hyperlipidemia Plan: ? Holding antihypertensives [lisinopril] given BIRD on CKD ?Continue ezetimibe 10 mg once a day #Transaminitis #Congestive hepatopathy likely related to CHF ?AST and ALT elevated with ALP elevation Plan: ? Continue IV diuresis therapy ? Trend LFTs ? Avoid hepatotoxic agents Health maintenance: Dispo: Tele Diet: Cardiac with fluid restriction GI: Pantoprazole DVT: SCDs Whelan: None Lines: Peripheral PT: Code: Full Case was discussed with senior resident Dr Kenny PGY-3 and attending physician, Dr Swapnil Parnell MD PGY-1 Attending Provider Attestation/Addendum I have discussed and was present for the essential components of the history, physical examination, diagnosis, and treatment plan with the resident. I agree with the patient's care as documented by the resident and amended herein by me. Kuldip Tingle, DO. Although this document has been carefully reviewed, there may still be some phonetic and other typographical errors. These errors are purely grammatical due to imperfections in the software program and should not be construed in any way to compromise the substance of the patient's medical care during this visit.
[2024-07-05] MEDS: CLOPIDOGREL BISULFATE 75 MG TABLET PO (20:31)
[2024-07-05] MEDS: ATORVASTATIN CALCIUM 20 MG TABLET 80 MG PO (20:31)
--- NOTE | 2024-07-05 23:16 | PC.NURSE ---
notified shetab, pt had 5 beats of PVCs, Bp normal and no complaints of chest pain.
[2024-07-05] MEDS: MELATONIN 3 MG TABLET PO (23:19)
[2024-07-06] VITALS (12 sets, daily range): BP systolic 117–143; BP diastolic 83–98; PULSE 66–93; RESP 16–98; TEMP 36.2–36.6; O2SAT 90–94; BMI 23.3
[2024-07-06] MEDS: DiphenhydrAMINE INJ 50 MG/ML VIAL 12.5 MG IVP (05:26)
[2024-07-06] MEDS: BUMETANIDE INJ 0.25 MG/ML VIAL 4 ML 2 MG IVP ×2 (05:26→17:28)
[2024-07-06] MEDS: LEVOTHYROXINE SODIUM 25 MCG TABLET 50 MCG PO (05:26)
[2024-07-06 05:57] LABS: Basophils # (Auto) 0.1 Thou/mm3 (0.0-0.2); Basophils % (Auto) 1 % (0-2.5); Eosinophils % (Auto) 0 % (0-10); Hematocrit 40.2 % (41.0-53.0); Hemoglobin 13.2 g/dL (13.5-16.0); Immature Granulocytes % (Auto) 0 % (0-0); Immature Granulocytes Auto 0.02 Thou/mm3 (0.00-0.00); Lymphocytes # (Auto) 0.9 Thou/mm3 (1.0-4.8); Lymphocytes % (Auto) 9 % (10-50); Mean Corpuscular HGB Conc 32.8 g/dl (31.0-37.0); Mean Corpuscular Hemoglobin 28.4 pg (25.0-35.0); Mean Corpuscular Volume 87 fL (80-100); Monocytes # (Auto) 0.7 Thou/mm3 (0.0-0.8); Monocytes % (Auto) 7 % (0-12); Neutrophils # (Auto) 8.3 Thou/mm3 (1.8-7.7); Neutrophils % (Auto) 82 % (37-80); Nucleated Red Blood Cell % 0 /100 WBC (0); Platelet Count 230 Thou/mm3 (140-440); RDW Standard Deviation 53.8 fL (35.1-43.9); Red Blood Count 4.64 Miln/mm3 (4.50-5.90)
[2024-07-06 06:34] LABS: Alanine Aminotransferase 70 U/L (10-49); Albumin, Serum 3.6 gm/dL (3.4-4.8); Albumin/Globulin Ratio 1.3 (1.2-2.2); Alkaline Phosphatase 227 U/L (46-116); Anion Gap 9 (7-16); Aspartate Amino Transferase 69 U/L (0-34); BUN/Creatinine Ratio 27 Ratio (12-20); Bilirubin,Total 2.5 mg/dL (0.3-1.2); Blood Urea Nitrogen 69 mg/dL (9-23); Calcium (Corrected) 9.3 mg/dL (8.5-10.1); Carbon Dioxide 24.7 mMol/L (20.0-31.0); Chloride 105 mMol/L (98-107); Creatinine (Component) 2.6 mg/dL (0.6-1.3); Estimated Creatinine Clearance 32.7 mL/min (>60); Globulin 2.8 gm/dL (2.3-3.5); Glucose 98 mg/dL (74-106); Magnesium 2.5 mg/dL (1.6-2.6); Osmolality,Calculated 297 (275-295); Phosphorous 3.9 mg/dL (2.4-5.1); Sodium 139 mMol/L (136-145); Total Protein 6.4 gm/dL (5.7-8.2); eGFR 27 See Note
[2024-07-06] MEDS: AMIODARONE HCL 200 MG TABLET PO (08:47)
[2024-07-06] MEDS: SPIRONOLACTONE 25 MG TABLET PO (08:47)
[2024-07-06] MEDS: EZETIMIBE 10 MG TABLET PO (08:47)
[2024-07-06] MEDS: POTASSIUM CHLORIDE 10% 20 MEQ/15 ML UDC 10 MEQ PO (08:48)
--- NOTE | 2024-07-06 12:32 | ESPR_ITS ---
<Statement entered by Anjelica Kenny MD - 07/06/24 15:50> Senior Resident Attestation: I supervised/discussed management plan with resident physician Dr. Varghese, and was involved in the care of this patient. I personally saw and examined the patient and discussed the assessment and plan with the entire medicine team, including my attending. Patient's care was discussed with attending physician, Dr. Swapnil Kenny MD PGY-3 Documentation for date of: 07/06/24 Subjective Subjective Interval history: Absence of acute overnight events. Patient seen resting comfortably in bed. Labs reviewed. He endorses pain with urination, denies increased frequency/urgency or penile discharge. He feels short of breath and breaths heavily. He is refusing oxygen as it makes him thirsty. Patient denies headache, fever, chills, chest pain, palpitation. Continue with aggressive diuresis. Exam Vital Signs Temp Pulse Resp BP Pulse Ox O2 Del Method O2 Flow Rate 97.9 F 72 17 140/98 H 90 L Room Air 2 07/06/24 08:00 07/06/24 12:00 07/06/24 08:00 07/06/24 08:47 07/06/24 08:00 07/06/24 08:00 07/06/24 04:00 Narrative Exam GENERAL: calm, elderly male in no acute distress HEENT: Moist mucosa. Eyes open, symmetrical, & clear, nasal cannula in-situ CARDIO: No chest pain on palpation. Heart RRR, no obvious murmurs. Positive JVD. PULM: No noted coughing/dyspnea. Mild crackles bilaterally LLL>>ULL, saturating 90% on room air. GI: Abdomen soft, nondistended, no pain on palpation. 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 SKIN/MSK/EXT: No edema lower extremities. Objective Labs 07/06/24 05:33 07/06/24 05:33 Labs: Laboratory Results - last 24 hr 07/06/24 05:33 WBC 10.0 RBC 4.64 Hgb 13.2 L Hct 40.2 L MCV 87 MCH 28.4 MCHC 32.8 RDW Std Deviation 53.8 H Plt Count 230 Neut % (Auto) 82 H Lymph % (Auto) 9 L [place] % (Auto) 7 Eos % (Auto) 0 Baso % (Auto) 1 Neut # (Auto) 8.3 H Lymph # (Auto) 0.9 L [place] # (Auto) 0.7 Eos # (Auto) 0.0 Baso # (Auto) 0.1 Immature Gran # (Auto) 0.02 H Absolute Nucleated RBC 0.00 Immature Gran % 0 Nucleated RBC % 0 Sodium 139 Potassium 4.0 Chloride 105 Carbon Dioxide 24.7 Anion Gap 9 BUN 69 H Creatinine 2.6 H Estim Creat Clear Calc 32.7 L eGFR 27 L BUN/Creatinine Ratio 27 H Glucose 98 Calculated Osmolality 297 H Calcium 9.0 Corrected Calcium 9.3 Phosphorus 3.9 Magnesium 2.5 Total Bilirubin 2.5 H AST 69 H ALT 70 H Alkaline Phosphatase 227 H Total Protein 6.4 Albumin 3.6 Globulin 2.8 Albumin/Globulin Ratio 1.3 Quality Measures Quality Measures VTE prophylaxis Assessment & Plan Assessment Current Active Medications: Generic Name Dose Route Start Last Admin Trade Name Freq PRN Reason Stop Dose Admin Acetaminophen 650 mg 07/04/24 20:28 07/05/24 14:36 Acetaminophen 325 Mg Tablet PO 08/03/24 20:27 650 mg Q6H PRN Administration Mild Pain 1-3 or Fever >100.4 Amiodarone HCl 200 mg 07/05/24 09:00 07/06/24 08:47 Amiodarone Hcl 200 Mg Tablet PO 08/04/24 08:59 200 mg QDAY CHARAN Administration Atorvastatin Calcium 80 mg 07/05/24 21:00 07/05/24 20:31 Atorvastatin Calcium 20 Mg Tablet PO 08/04/24 20:59 80 mg HS CHARAN Administration Bumetanide 2 mg 07/05/24 09:00 07/06/24 05:26 Bumetanide Inj 0.25 Mg/Ml Vial 4 Ml IVP 08/04/24 08:59 2 mg BIDD CHARAN Administration Clopidogrel Bisulfate 75 mg 07/04/24 21:00 07/05/24 20:31 Clopidogrel Bisulfate 75 Mg Tablet PO 08/03/24 20:59 75 mg HS CHARAN Administration Ezetimibe 10 mg 07/05/24 09:00 07/06/24 08:47 Ezetimibe 10 Mg Tablet PO 08/04/24 08:59 10 mg QDAY CHARAN Administration Levothyroxine Sodium 50 mcg 07/05/24 06:00 07/06/24 05:26 Levothyroxine Sodium 25 Mcg Tablet PO 08/04/24 05:59 50 mcg ACBR CHARAN Administration Melatonin 3 mg 07/05/24 21:15 07/05/24 23:19 Melatonin 3 Mg Tablet PO 08/04/24 20:59 3 mg HS PRN Administration INSOMNIA Ondansetron HCl 4 mg 07/04/24 20:28 Ondansetron Inj 2 Mg/Ml Inj 2 Ml IV 08/03/24 20:27 Q6H PRN NAUSEA OR VOMITING Protocol Potassium Chloride 10 meq 07/05/24 09:15 07/06/24 08:48 Potassium Chloride 10% 20 Meq/15 Ml Udc PO 08/04/24 09:14 10 meq QDAY CHARAN Administration Spironolactone 25 mg 07/05/24 13:30 07/06/24 08:47 Spironolactone 25 Mg Tablet PO 08/04/24 13:29 25 mg QDAY CHARAN Administration Plan A 59-year-old male with a past medical history of hypertension, hyperlipidemia, CHF, atrial fibrillation s/p ICD on amiodarone 200 mg daily, and history of CAD status post CABG [address]. [address] Tineo in [place] for cardiology, Dr. Barlow for nephrology, and PCP of [facility] presented with worsening shortness of breath and lower extremity swelling from last 1 week due to increased water intake. Given IV bumex in the ED. He was admitted for management of CHF exacerbation on Bumex. #Acute hypoxic respiratory failure #Acute decompensated heart disease #History of CAD s/p stents and CABG Patient presented with worsening shortness of breath, orthopnea, PND and lower extremity swelling. He admitted to increased water consumption resulting in 5 pounds gained over 1 week. Chest x-ray showed moderate enlargement cardiac contour, prominent vascular congestion and early septal edema at lung bases. At home, patient is on Bumex 1 g twice daily and spironolactone 25 mg daily Positive JVD. Mild crackles bilaterally LLL>>ULL, saturating 90% on room air. Elevated BNP. Patient still currently in acute decompensation with noticeable dyspnea, orthopnea, and JVD. Plan: ? Continue IV Bumex 2 mg twice daily, transition to oral Bumex tomorrow 07/07/24. ? Continue patient's home medication Plavix 75 mg and ezetimibe 10 mg once a day ? Spironolactone 25 mg once a day ? Fluid restriction, strict IAN's and daily weight ? Replete electrolytes as necessary ? CBC and CMP in AM ? Monitor vitals closely #BIRD on CKD, cardiorenal versus postrenal The patient has a history of CKD, possibly stage IV and is being followed by Dr. Barlow as an outpatient. He endorses dysuria and weak stream x 1 week. No history of BPH or any urological procedures and has not seen urology for similar symptoms. Whelan catheter in place with continuous urinary flow. 1400 cc noted in Whelan this morning. Plan: -Monitor urine output via whelan -Follow-up renal panel -Avoid nephrotoxic medications -Consider Flomax #Possible UTI UA: Negative. However, patient endorses dysuria and difficulty with urination. No history of BPH. No hx of UTI's. Blood cultures negative x2 prelim Plan: -F/up urine cultures # A-fib, rate controlled on amiodarone status post ICD Hx of Afib. Currrently rate controlled in the 80s. EKG showed electrical ventricular pacemaker. QTc 505. [id number] score 2 Role of Eliquis with a score is debatable, will leave to cardiology. Plan: ? Continue amiodarone 200 mg once a day ? Replete electrolytes as necessary ? Keep magnesium above 2 and potassium above 4 ? Tele monitor #Hx HTN # History of hyperlipidemia Plan: ? Holding antihypertensives [lisinopril] given BIRD on CKD ?Continue ezetimibe 10 mg once a day #Transaminitis, stable #Congestive hepatopathy likely related to CHF AST and ALT elevated with ALP elevation Plan: ? IV diuresis therapy ? Trend LFTs ? Avoid hepatotoxic agents # NSTEMI type II likely supply demand ischemia, resolved Health maintenance: Dispo: Tele Diet: Cardiac with fluid restriction GI: Pantoprazole DVT: SCDs Whelan: None Lines: Peripheral PT: Code: Full Discussed case with my attending Dr. Kraft and senior Anjelica Kenny, PGY-3. Thank you, Milli Varghese, PGY-2 Attending Provider Attestation/Addendum I have discussed and was present for the essential components of the history, physical examination, diagnosis, and treatment plan with the resident. I agree with the patient's care as documented by the resident and amended herein by me. Kuldip Kraft DO. Patient seen and evaluated this AM. Vital signs stable, patient afebrile overnight, I/oh 1960/3050, patiently presently saturating 91% on 2 L NC. Weight 80 kg today. Creatinine stable at 2.6, BUN 69. Will continue Plavix, acetamide, IV Bumex 2 mg twice daily, spironolactone 25 mg daily started by cardiology, appreciate additional recommendations. Likely discharge in 1 to 2 days pending improvement patient not quite ready for discharge today.. Although this document has been carefully reviewed, there may still be some phonetic and other typographical errors. These errors are purely grammatical due to imperfections in the software program and should not be construed in any way to compromise the substance of the patient's medical care during this visit.
--- NOTE | 2024-07-06 13:21 | PC.SS ---
Rounding: One more day of Diuresis
[2024-07-06] MEDS: ATORVASTATIN CALCIUM 20 MG TABLET 80 MG PO (20:22)
[2024-07-06] MEDS: CLOPIDOGREL BISULFATE 75 MG TABLET PO (20:23)
[2024-07-06] MEDS: MELATONIN 3 MG TABLET PO (20:23)
--- NOTE | 2024-07-06 22:48 | ESPR_ITS ---
RE: CHADWICK LOPEZ : 1965 DATE OF SERVICE: 07/06/2024 S: Chadwick Lopez admitted to the hospital with severe shortness of breath with congestive heart failure, still having lot of shortness of breath, continues to get IV diuretics aggressively. He is still receiving bumetanide 2 mg twice daily and is also continued to have on rest of medications unchanged, not having any shortness of breath, chest pain, but still has _ orthopnea. O: Vital Signs: Shows vital signs remain stable. Blood pressure 138/90 and pulse 87. Neck: Supple. JVD is still present. Chest: Symmetrical. Lungs: Decreased breath sounds. Bilateral crackles. Heart: S1, S2 regular. Extremities: No edema. VARIOUS LABS: His creatinine is still elevated at 2.6, BUN is 69. A: 1. Acutely decompensated congestive heart failure. 2. Chronic kidney disease, stage IV. 3. Ischemic cardiomyopathy, status post bypass surgery. 4. Status post OVERSIZE LOAD PILOT ESCORT-D implantation. P: We will continue aggressive diuretic therapy. Because of renal failure, the patient requires higher dose of diuretics to improve his symptoms and monitor the patient closely. We will get an echocardiogram repeated tomorrow. He does not have any record of echo in this hospital. DT: 20:47:20 TT: 21:30:00 Ref: [id number] - TID: [id number] MTDD
[2024-07-07] VITALS (11 sets, daily range): BP systolic 113–155; BP diastolic 82–96; PULSE 71–103; RESP 17–95; TEMP 36.3–36.9; O2SAT 93–96; BMI 22.5
[2024-07-07] MEDS: DiphenhydrAMINE INJ 50 MG/ML VIAL 12.5 MG IV (00:23)
[2024-07-07 05:44] LABS: Basophils # (Auto) 0.1 Thou/mm3 (0.0-0.2); Basophils % (Auto) 1 % (0-2.5); Eosinophils % (Auto) 0 % (0-10); Hematocrit 40.6 % (41.0-53.0); Hemoglobin 13.1 g/dL (13.5-16.0); Immature Granulocytes % (Auto) 0 % (0-0); Immature Granulocytes Auto 0.03 Thou/mm3 (0.00-0.00); Lymphocytes # (Auto) 0.9 Thou/mm3 (1.0-4.8); Lymphocytes % (Auto) 8 % (10-50); Mean Corpuscular HGB Conc 32.3 g/dl (31.0-37.0); Mean Corpuscular Hemoglobin 28.2 pg (25.0-35.0); Mean Corpuscular Volume 88 fL (80-100); Monocytes % (Auto) 8 % (0-12); Neutrophils # (Auto) 9.6 Thou/mm3 (1.8-7.7); Neutrophils % (Auto) 83 % (37-80); Nucleated Red Blood Cell % 0 /100 WBC (0); Platelet Count 249 Thou/mm3 (140-440); RDW Standard Deviation 54.4 fL (35.1-43.9); Red Blood Count 4.64 Miln/mm3 (4.50-5.90); White Blood Count 11.6 Thou/mm3 (3.8-10.6)
[2024-07-07] MEDS: LEVOTHYROXINE SODIUM 25 MCG TABLET 50 MCG PO (06:00)
[2024-07-07] MEDS: BUMETANIDE INJ 0.25 MG/ML VIAL 4 ML 2 MG IVP ×2 (06:00→20:38)
[2024-07-07 06:38] LABS: Alanine Aminotransferase 62 U/L (10-49); Albumin, Serum 3.6 gm/dL (3.4-4.8); Albumin/Globulin Ratio 1.2 (1.2-2.2); Alkaline Phosphatase 206 U/L (46-116); Anion Gap 11 (7-16); Aspartate Amino Transferase 54 U/L (0-34); BUN/Creatinine Ratio 23 Ratio (12-20); Bilirubin,Total 2.6 mg/dL (0.3-1.2); Blood Urea Nitrogen 63 mg/dL (9-23); Calcium (Corrected) 9.3 mg/dL (8.5-10.1); Carbon Dioxide 23.7 mMol/L (20.0-31.0); Chloride 104 mMol/L (98-107); Creatinine (Component) 2.7 mg/dL (0.6-1.3); Estimated Creatinine Clearance 31.3 mL/min (>60); Globulin 2.9 gm/dL (2.3-3.5); Glucose 96 mg/dL (74-106); Magnesium 2.6 mg/dL (1.6-2.6); Osmolality,Calculated 295 (275-295); Potassium 3.9 mMol/L (3.4-5.1); Sodium 139 mMol/L (136-145); Total Protein 6.5 gm/dL (5.7-8.2); eGFR 26 See Note
[2024-07-07] MEDS: SPIRONOLACTONE 25 MG TABLET PO (09:20)
[2024-07-07] MEDS: AMIODARONE HCL 200 MG TABLET PO (09:20)
[2024-07-07] MEDS: POTASSIUM CHLORIDE 10% 20 MEQ/15 ML UDC 10 MEQ PO (09:20)
[2024-07-07] MEDS: EZETIMIBE 10 MG TABLET PO (09:21)
[2024-07-07 09:49] LABS: Collection Type, Urine Catheter; Squamous Epithelial Cell,Urine 0 /hpf (0-5)
--- NOTE | 2024-07-07 09:53 | ESPR_ITS ---
<Statement entered by Anjelica Kenny MD - 07/08/24 07:36> Senior Resident Attestation: I supervised/discussed management plan with resident physician Dr. Varghese, and was involved in the care of this patient. I personally saw and examined the patient and discussed the assessment and plan with the entire medicine team, including my attending. Patient's care was discussed with attending physician, Dr. Swapnil Kenny MD PGY-3 Documentation for date of: 07/07/24 Subjective Subjective Interval history: No acute overnight events. Patient seen resting comfortably in bed. Labs reviewed. On telemetry, overnight patient remains in A-fib, controlled at 70's-80s. He states that his pain with urination has dissipated. His shortness of breath is improving with diuresis. Transition patient from IV Bumex 2 mg twice daily to oral Bumex 2 mg twice daily. Exam Vital Signs Temp Pulse Resp BP Pulse Ox O2 Del Method O2 Flow Rate 97.8 F 83 23 H 136/88 H 96 Room Air 2 07/07/24 08:00 07/07/24 09:20 07/07/24 08:00 07/07/24 09:20 07/07/24 08:00 07/07/24 08:00 07/06/24 04:00 Narrative Exam GENERAL: calm, elderly male in no acute distress laying in bed gurney. HEENT: Moist mucosa. Eyes open, symmetrical, & clear. CARDIO: Heart RRR, systolic mumur noted in the 2nd right intercoastal space. Positive JVD. PULM: Relatively clear to auscultation. No obvious murmurs or wheezing noted. Saturating 96% on room air. GI: Abdomen soft, nondistended, nontender. ++ bowel sounds. URO/ELECTRIC MOTOR TESTER ASSEMBLER:: Whelan catheter with 1000cc urine NEURO: CARD PLACER grossly intact, moves extremities x4, alert and oriented to person, place, time. SKIN/MSK/EXT: No edema lower extremities. 2+ dorsalis pedis pulses bilaterally. Objective Labs 07/08/24 05:44 07/08/24 05:44 Labs: Laboratory Results - last 24 hr 07/07/24 04:58 WBC 11.6 H RBC 4.64 Hgb 13.1 L Hct 40.6 L MCV 88 MCH 28.2 MCHC 32.3 RDW Std Deviation 54.4 H Plt Count 249 Neut % (Auto) 83 H Lymph % (Auto) 8 L [place] % (Auto) 8 Eos % (Auto) 0 Baso % (Auto) 1 Neut # (Auto) 9.6 H Lymph # (Auto) 0.9 L [place] # (Auto) 1.0 H Eos # (Auto) 0.0 Baso # (Auto) 0.1 Immature Gran # (Auto) 0.03 H Absolute Nucleated RBC 0.00 Immature Gran % 0 Nucleated RBC % 0 Sodium 139 Potassium 3.9 Chloride 104 Carbon Dioxide 23.7 Anion Gap 11 BUN 63 H Creatinine 2.7 H Estim Creat Clear Calc 31.3 L eGFR 26 L BUN/Creatinine Ratio 23 H Glucose 96 Calculated Osmolality 295 Calcium 9.0 Corrected Calcium 9.3 Phosphorus 4.0 Magnesium 2.6 Total Bilirubin 2.6 H AST 54 H ALT 62 H Alkaline Phosphatase 206 H D Total Protein 6.5 Albumin 3.6 Globulin 2.9 Albumin/Globulin Ratio 1.2 Quality Measures Quality Measures VTE prophylaxis Assessment & Plan Assessment Current Active Medications: Generic Name Dose Route Start Last Admin Trade Name Freq PRN Reason Stop Dose Admin Acetaminophen 650 mg 07/04/24 20:28 07/05/24 14:36 Acetaminophen 325 Mg Tablet PO 08/03/24 20:27 650 mg Q6H PRN Administration Mild Pain 1-3 or Fever >100.4 Amiodarone HCl 200 mg 07/05/24 09:00 07/07/24 09:20 Amiodarone Hcl 200 Mg Tablet PO 08/04/24 08:59 200 mg QDAY CHARAN Administration Atorvastatin Calcium 80 mg 07/05/24 21:00 07/06/24 20:22 Atorvastatin Calcium 20 Mg Tablet PO 08/04/24 20:59 80 mg HS CHARAN Administration Bumetanide 2 mg 07/07/24 21:00 Bumetanide 0.5 Mg Tablet PO 08/06/24 20:59 BID CHARAN Clopidogrel Bisulfate 75 mg 07/04/24 21:00 07/06/24 20:23 Clopidogrel Bisulfate 75 Mg Tablet PO 08/03/24 20:59 75 mg HS CHARAN Administration Ezetimibe 10 mg 07/05/24 09:00 07/07/24 09:21 Ezetimibe 10 Mg Tablet PO 08/04/24 08:59 10 mg QDAY CHARAN Administration Levothyroxine Sodium 50 mcg 07/05/24 06:00 07/07/24 06:00 Levothyroxine Sodium 25 Mcg Tablet PO 08/04/24 05:59 50 mcg ACBR CHARAN Administration Melatonin 3 mg 07/05/24 21:15 07/06/24 20:23 Melatonin 3 Mg Tablet PO 08/04/24 20:59 3 mg HS PRN Administration INSOMNIA Ondansetron HCl 4 mg 07/04/24 20:28 Ondansetron Inj 2 Mg/Ml Inj 2 Ml IV 08/03/24 20:27 Q6H PRN NAUSEA OR VOMITING Protocol Potassium Chloride 10 meq 07/05/24 09:15 07/07/24 09:20 Potassium Chloride 10% 20 Meq/15 Ml Udc PO 08/04/24 09:14 10 meq QDAY CHARAN Administration Spironolactone 25 mg 07/05/24 13:30 07/07/24 09:20 Spironolactone 25 Mg Tablet PO 08/04/24 13:29 25 mg QDAY CHARAN Administration Plan A 59-year-old male with a past medical history of hypertension, hyperlipidemia, CHF, atrial fibrillation s/p ICD on amiodarone 200 mg daily, and history of CAD status post CABG [address] Tineo in [place] for cardiology, Dr. Barlow for nephrology, and PCP of [facility] presented with worsening shortness of breath and lower extremity swelling from last 1 week due to increased water intake.UA: Negative. Blood cultures negative x2 prelim. Urine culture no growth. Given IV bumex in the ED. He was admitted for management of CHF exacerbation on Bumex. #Acute hypoxic respiratory failure Most likely secondary to #Acute decompensated heart disease #History of CAD s/p stents and CABG Patient presented with worsening shortness of breath, orthopnea, PND and lower extremity swelling. Recent 5 pound gain weight after 1 week of heavy fluid consumption. Chest x-ray showed moderate enlargement cardiac contour, prominent vascular congestion and early septal edema at lung bases. At home, patient is on Bumex 1 g twice daily and spironolactone 25 mg daily. Positive JVD. Relatively clear on auscultation. No bilateral edema noted in lower extremities. Patient appears to be clinically improving in his acute heart failure exacerbation. Likely patient was in exacerbation 2/2 increased fluid intake and hypertension. Elevated BNP. Plan: ? Oral Bumex 2mg BID ? Spironolactone 25 mg once a day ? Fluid restriction, strict IAN's and daily weight ? Replete electrolytes as necessary ? BNP ordered; f/up ? CBC and CMP in AM ? Continue patient's home medication Plavix 75 mg and ezetimibe 10 mg once a day ? Monitor vitals closely #BIRD on CKD, cardiorenal versus postrenal The patient has a history of CKD, possibly stage IV and is being followed by Dr. Barlow as an outpatient. No history of BPH or any urological procedures and has not seen urology for similar symptoms. Whealn catheter in place with continuous urinary flow. BUN 63, Creatinine 2.7 (baseline 1.7- 11/10), GFR 26. Plan: -Monitor urine output via whelan -Pending improvement in renal function -Follow-up renal panel -Avoid nephrotoxic medications # A-fib, rate controlled on amiodarone status post ICD Hx of Afib. Currrently rate controlled in the 80s. EKG showed electrical ventricular pacemaker. QTc 505. [id number] score 2 Role of Eliquis with a score is debatable, will leave to cardiology. Plan: ? Amiodarone 200 mg once a day ? Replete electrolytes as necessary ? Keep magnesium above 2 and potassium above 4 ? Tele monitor #New onset BPH, likely Patient had 200 cc flow on initial Whelan catheter insertion. Patient endorses difficulty w/urination. Suspect patient has new onset BPH, resulting in urinary retention and difficulty with passing urine. Plan: -Whelan catheter in place -Flomax 0.4 mg daily #Hx HTN # History of hyperlipidemia Plan: ? Holding antihypertensives [lisinopril] given BIRD on CKD ?Continue ezetimibe 10 mg once a day #Transaminitis, improving #Congestive hepatopathy likely related to CHF AST and ALT elevated with ALP elevation, now improving. Plan: ? Treat underlying CHF. ? Trend LFTs ? Avoid hepatotoxic agents # NSTEMI type II likely supply demand ischemia, resolved Health maintenance: Dispo: Tele for management of CHF exacerbation on oral diuretics. Anticipated D/c 24-48 hours. Diet: Cardiac with fluid restriction GI: Pantoprazole DVT: SCDs Code: Full Discussed case with my attending Dr. Kraft and senior Anjelica Kenny, PGY-3. Thank you, Milli Varghese, PGY-2 Attending Provider Attestation/Addendum I have discussed and was present for the essential components of the history, physical examination, diagnosis, and treatment plan with the resident. I agree with the patient's care as documented by the resident and amended herein by me. Kuldip Kraft, DO. Although this document has been carefully reviewed, there may still be some phonetic and other typographical errors. These errors are purely grammatical due to imperfections in the software program and should not be construed in any way to compromise the substance of the patient's medical care during this visit.
[2024-07-07 10:04] LABS: Bilirubin,Urine Negative (Negative); Blood,Urine 2+ (Negative); Clarity,Urine Clear (Clear/Hazy); Color,Urine Colorless (Lt Yel-Yel); Glucose, Urine Negative (Negative); Ketones,Urine Negative (Negative); Leukocyte Esterase,Urine Negative (Negative); Nitrite,Urine Negative (Negative); PH,Urine 7.5 (5.0-7.0); Protein,Urine Negative (Neg - Trace); RBC,Urine 26 /hpf (0-3); Specific Gravity,Urine 1.008 (1.001-1.035); Urobilinogen,Urine Negative mg/dL (0.0-1.0); WBC,Urine 6 /hpf (0-5)
[2024-07-07] MEDS: TAMSULOSIN HCL 0.4 MG CAPSULE PO (15:19)
[2024-07-07] MEDS: LORazepam 0.5 MG TABLET 1 MG PO (17:19)
--- NOTE | 2024-07-07 17:45 | ESPR_ITS ---
<Statement entered by Brenda Sanders MD - 07/08/24 12:22> I personally evaluated the patient and spoke to Dr. 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 Heart failure symptoms are slowly improving recommended consideration for TAVR procedure as an outpatient Dr. Tineo will be following the patient following discharge high risk for TAVR but this probably the only option. Patient not a good candidate for cardiac transplant because of multisystem disease and renal failure as well. I evaluated the patient with resident physician Dr. Nickerson PGY 2 agree with the treatment plan recommendations as formulated. 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 Tineo in [place] for cardiology, Dr. Barlow for nephrology, and [facility]. Patient stated increasing shortness of breath began 1 week ago after increasing his water uptake. 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 He noticed 3 to 5 pound weight gain over the past 5 days. Patient did had symptoms of orthopnea, shortness of breath, lower extremity swelling. He did endorse some chills from last 2 days.In the ED, patient was afebrile, had stable blood pressure and heart rate. He was saturating well on room air. Pertinent labs showed elevated BNP above 3280, troponin I 0.258. Chest x-ray showed moderate enlargement cardiac contour, prominent vascular congestion, early septal edema at lung bases. Renal function showed BUN 55 and creatinine 2.5. GFR 29. Admitted for CHF exacerbation. PMH: As above SH: Denies smoking or drinking alcohol. Allergies NKDA Home medications: Lisinopril 12.5 mg twice daily, levothyroxine 50 mcg, Bumex 1 mg twice daily, amiodarone 200 mg once a day, clopidogrel 75 mg at bedtime, atorvastatin 80 mg at bedtime and ezetimibe 10 mg daily Cardiology team consulted for heart failure exacerbation. Patient reported that he came with shortness of breath and was drinking more than usual water ended up gaining extra pounds. Patient does have extensive cardiac history and reported to follow-up with Dr. Tineo in [place]. Current recommendations are to continue Bumex 2 mg IV twice daily, continue amiodarone 200 mg once a day, started spironolactone 25 mg once a day patient's home medication.Recommended to continue Plavix and ezetimibe. Stop trending troponin I as they downtrended. Continue fluid restriction, strict IAN's and daily weight. Patient will need heart failure medication optimization before discharge. Rest of the management as per primary care team. All labs and orders were reviewed. Cardiology will follow the case closely. 07/07/2024: Patient was seen and examined at the bedside. Patient was short of breath and tachypneic. He still has some lower extremity swelling. Labs revealed leukocytosis and normocytic anemia. Kidney functions showing BUN 63 and creatinine 2.7 CKD stage IIIb. Elevated transaminases. Echocardiogram showed Dilated cardiomyopathy markedly dilated left ventricle measuring 7.9 cm severe global hypokinesis ejection fraction of 15%.Low-flow low gradient severe calcific aortic stenosis with aortic velocity 3.4 m/s peak gradient of 45 mmHg aortic valve area 0.5 cm?. There is also evidence of moderate to severe aortic regurgitation. Mitral valve thickening annulus calcification mild to moderate mitral regurgitation.Moderate tricuspid valve regurgitation with moderate pulmonary hypertension PA pressure estimated at 60 mmHg possibly group 2 pulmonary hypertension due to heart failure. Biatrial enlargement. Recommended to continue Bumex 2 mg 2 times a day, patient's welder and fitter was contacted and case was discussed. Patient might benefit with TAVR considering severe aortic stenosis which may help improve patient's heart functions. Continue spironolactone.Patient continues to show good diureis.All labs and orders reviewed. Exam Vital Signs Temp Pulse Resp BP Pulse Ox O2 Del Method O2 Flow Rate 98.5 F 88 24 H 136/96 H 93 L Room Air 2 07/07/24 16:00 07/07/24 16:00 07/07/24 16:00 07/07/24 16:00 07/07/24 16:00 07/07/24 16:00 07/06/24 04:00 Narrative Exam GENERAL APPEARANCE: Patient is AOx3, generally well-appearing male in no acute distress. Saturating well on 1 L NC. HEENT: NC, AT. MMM. EOMI, clear conjunctiva, oropharynx clear. NECK: Supple without lymphadenopathy. No stiffness or restricted ROM. HEART: Regular rate and regular rhythm, normal S1/S2, mitral valve regurgitation murmur heard on apex LUNGS: CTAB, moving air well. No crackles or wheezes are heard. ABDOMEN: Soft, nontender, nondistended with good bowel sounds heard. BACK: No CVAT, no obvious deformity. EXTREMITIES: Trace edema noticed on both lower extremities. NEUROLOGICAL: Grossly nonfocal. Alert and oriented, moving all 4 extremities. CN not formally tested but appear grossly intact. Observed to ambulate with normal gait. Skin: Warm and dry without any rash. Psych: Appropriate mood and affect Objective Labs 07/07/24 04:58 07/07/24 04:58 Labs: Laboratory Results - last 24 hr 07/07/24 07/07/24 04:58 09:25 WBC 11.6 H RBC 4.64 Hgb 13.1 L Hct 40.6 L MCV 88 MCH 28.2 MCHC 32.3 RDW Std Deviation 54.4 H Plt Count 249 Neut % (Auto) 83 H Lymph % (Auto) 8 L [place] % (Auto) 8 Eos % (Auto) 0 Baso % (Auto) 1 Neut # (Auto) 9.6 H Lymph # (Auto) 0.9 L [place] # (Auto) 1.0 H Eos # (Auto) 0.0 Baso # (Auto) 0.1 Immature Gran # (Auto) 0.03 H Absolute Nucleated RBC 0.00 Immature Gran % 0 Nucleated RBC % 0 Sodium 139 Potassium 3.9 Chloride 104 Carbon Dioxide 23.7 Anion Gap 11 BUN 63 H Creatinine 2.7 H Estim Creat Clear Calc 31.3 L eGFR 26 L BUN/Creatinine Ratio 23 H Glucose 96 Calculated Osmolality 295 Calcium 9.0 Corrected Calcium 9.3 Phosphorus 4.0 Magnesium 2.6 Total Bilirubin 2.6 H AST 54 H ALT 62 H Alkaline Phosphatase 206 H D Total Protein 6.5 Albumin 3.6 Globulin 2.9 Albumin/Globulin Ratio 1.2 Ur Collection Type Catheter Urine Color Colorless A Urine Clarity Clear Urine pH 7.5 H Ur Specific [place] 1.008 Urine Protein Negative Urine Glucose (UA) Negative Urine Ketones Negative Urine Blood 2+ A Urine Nitrite Negative Urine Bilirubin Negative Urine Urobilinogen (Auto) Negative Ur Leukocyte Esterase Negative Urine RBC 26 H Urine WBC 6 H Ur Squamous Epith Cells 0 Urine Bacteria None Quality Measures Quality Measures VTE prophylaxis Assessment & Plan Assessment Current Active Medications: Generic Name Dose Route Start Last Admin Trade Name Freq PRN Reason Stop Dose Admin Acetaminophen 650 mg 07/04/24 20:28 07/05/24 14:36 Acetaminophen 325 Mg Tablet PO 08/03/24 20:27 650 mg Q6H PRN Administration Mild Pain 1-3 or Fever >100.4 Amiodarone HCl 200 mg 07/05/24 09:00 07/07/24 09:20 Amiodarone Hcl 200 Mg Tablet PO 08/04/24 08:59 200 mg QDAY CHARAN Administration Atorvastatin Calcium 80 mg 07/05/24 21:00 07/06/24 20:22 Atorvastatin Calcium 20 Mg Tablet PO 08/04/24 20:59 80 mg HS CHARAN Administration Bumetanide 2 mg 07/07/24 21:00 Bumetanide Inj 0.25 Mg/Ml Vial 4 Ml IVP 08/06/24 20:59 BID CHARAN Clopidogrel Bisulfate 75 mg 07/04/24 21:00 07/06/24 20:23 Clopidogrel Bisulfate 75 Mg Tablet PO 08/03/24 20:59 75 mg HS CHARAN Administration Ezetimibe 10 mg 07/05/24 09:00 07/07/24 09:21 Ezetimibe 10 Mg Tablet PO 08/04/24 08:59 10 mg QDAY CHARAN Administration Levothyroxine Sodium 50 mcg 07/05/24 06:00 07/07/24 06:00 Levothyroxine Sodium 25 Mcg Tablet PO 08/04/24 05:59 50 mcg ACBR CHARAN Administration Melatonin 3 mg 07/05/24 21:15 07/06/24 20:23 Melatonin 3 Mg Tablet PO 08/04/24 20:59 3 mg HS PRN Administration INSOMNIA Ondansetron HCl 4 mg 07/04/24 20:28 Ondansetron Inj 2 Mg/Ml Inj 2 Ml IV 08/03/24 20:27 Q6H PRN NAUSEA OR VOMITING Protocol Potassium Chloride 10 meq 07/05/24 09:15 07/07/24 09:20 Potassium Chloride 10% 20 Meq/15 Ml Udc PO 08/04/24 09:14 10 meq QDAY CHARAN Administration Spironolactone 25 mg 07/05/24 13:30 07/07/24 09:20 Spironolactone 25 Mg Tablet PO 08/04/24 13:29 25 mg QDAY CHARAN Administration Tamsulosin HCl 0.4 mg 07/07/24 14:00 07/07/24 15:19 Tamsulosin Hcl 0.4 Mg Capsule PO 08/06/24 13:59 0.4 mg QDAY CHARAN Administration Plan Patient is a 59-year-old male with a past medical history of hypertension, hyperlipidemia, CHF, 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 Tineo in [place] for cardiology, Dr. Barlow for nephrology, and [facility]CP [facility] presented with worsening shortness of breath and lower extremity swelling from last 1 week due to increased water intake. Recommended to continue Bumex 2 mg IV twice daily, continue amiodarone 200 mg once a day, started spironolactone 25 mg once a day patient's home medication. # Acute on chronic CHF exacerbation #HFrEF 15% with severe aortic valve stenosis #Grade 2 PAH # History of CAD s/p stents and CABG ?Patient presented with worsening shortness of breath and lower extremity swelling. He increased intake of water and gained extra pounds. Chest x-ray showed moderate enlargement cardiac contour, prominent vascular congestion and early septal edema at lung bases. Kidney functions showed creatinine 2.5 and GFR 29. Initial elevated BNP. -Echocardiogram showed Dilated cardiomyopathy markedly dilated left ventricle measuring 7.9 cm severe global hypokinesis ejection fraction of 15%.Low-flow low gradient severe calcific aortic stenosis with aortic velocity 3.4 m/s peak gradient of 45 mmHg aortic valve area 0.5 cm?. There is also evidence of moderate to severe aortic regurgitation. Mitral valve thickening annulus calcification mild to moderate mitral regurgitation.Moderate tricuspid valve regurgitation with moderate pulmonary hypertension PA pressure estimated at 60 mmHg possibly group 2 pulmonary hypertension due to heart failure. Biatrial enlargement. Plan: ? Continue IV Bumex 2 mg twice daily ? Continue patient's home medication Plavix 75 mg and ezetimibe 10 mg once a day ? Cont spironolactone 25 mg once a day ? Continue fluid restriction, strict IAN's and daily weight ? Replete electrolytes as necessary ? Daily labs ? 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 EKG showed electrical ventricular pacemaker. QTc 505. ?[id number] score 2 Plan: ? Continue amiodarone 200 mg once a day ? Replete electrolytes as necessary ? Keep magnesium above 2 and potassium above 4 ? Monitor EKG for A-fib with RVR # NSTEMI type II likely supply demand ischemia ? Initially troponin was elevated at 0.248 downtrended to 0.234 Plan: ? Monitor for signs of chest pain ? Stop trending troponin I ? Monitor EKG #Hx HTN #History of hyperlipidemia Plan: ? Holding antihypertensives [lisinopril] given BIRD on CKD ? Continue ezetimibe 10 mg once a day #Congestive hepatopathy likely related to CHF ?AST and ALT elevated with ALP elevation Plan: ? Continue IV diuresis therapy ? Trend LFTs ? Avoid hepatotoxic agents Other active problems: #BIRD on CKD stage IIIb # Normocytic hypochromic anemia # hypermagnesemia # Subclinical hypothyroidism Rest of the management as per primary care team. Thank you very much for consulting cardiology team.Recommended to continue IV diuretics therapy. Considering reduced EF and severe aortic stensois he will benefit from TAVR possible which improve cardiac functions. Patient was seen and discussed with welder and fitter, Dr. Tommy Nickerson MD, PGY 2
[2024-07-07] MEDS: ATORVASTATIN CALCIUM 20 MG TABLET 80 MG PO (20:37)
[2024-07-07] MEDS: CLOPIDOGREL BISULFATE 75 MG TABLET PO (20:37)
[2024-07-08] VITALS (11 sets, daily range): BP systolic 108–138; BP diastolic 71–91; PULSE 69–90; RESP 16–100; TEMP 36.6–37; O2SAT 91–96
[2024-07-08] MEDS: LEVOTHYROXINE SODIUM 25 MCG TABLET 50 MCG PO (05:37)
[2024-07-08 06:36] LABS: Basophils # (Auto) 0.1 Thou/mm3 (0.0-0.2); Basophils % (Auto) 1 % (0-2.5); Eosinophils % (Auto) 0 % (0-10); Hematocrit 40.6 % (41.0-53.0); Hemoglobin 13.2 g/dL (13.5-16.0); Immature Granulocytes % (Auto) 0 % (0-0); Immature Granulocytes Auto 0.05 Thou/mm3 (0.00-0.00); Lymphocytes # (Auto) 0.8 Thou/mm3 (1.0-4.8); Lymphocytes % (Auto) 6 % (10-50); Mean Corpuscular HGB Conc 32.5 g/dl (31.0-37.0); Mean Corpuscular Hemoglobin 28.2 pg (25.0-35.0); Mean Corpuscular Volume 87 fL (80-100); Monocytes # (Auto) 1.1 Thou/mm3 (0.0-0.8); Monocytes % (Auto) 9 % (0-12); Neutrophils # (Auto) 10.3 Thou/mm3 (1.8-7.7); Neutrophils % (Auto) 84 % (37-80); Nucleated Red Blood Cell % 0 /100 WBC (0); Platelet Count 217 Thou/mm3 (140-440); RDW Standard Deviation 54.3 fL (35.1-43.9); Red Blood Count 4.68 Miln/mm3 (4.50-5.90); White Blood Count 12.3 Thou/mm3 (3.8-10.6)
[2024-07-08 07:14] LABS: Alanine Aminotransferase 45 U/L (10-49); Albumin, Serum 3.6 gm/dL (3.4-4.8); Albumin/Globulin Ratio 1.3 (1.2-2.2); Alkaline Phosphatase 174 U/L (46-116); Anion Gap 9 (7-16); Aspartate Amino Transferase 35 U/L (0-34); BUN/Creatinine Ratio 23 Ratio (12-20); Bilirubin,Total 3.3 mg/dL (0.3-1.2); Blood Urea Nitrogen 61 mg/dL (9-23); Calcium 8.8 mg/dL (8.3-10.6); Calcium (Corrected) 9.1 mg/dL (8.5-10.1); Carbon Dioxide 27.4 mMol/L (20.0-31.0); Chloride 104 mMol/L (98-107); Creatinine (Component) 2.6 mg/dL (0.6-1.3); Estimated Creatinine Clearance 31.9 mL/min (>60); Globulin 2.8 gm/dL (2.3-3.5); Glucose 133 mg/dL (74-106); Magnesium 2.7 mg/dL (1.6-2.6); Osmolality,Calculated 298 (275-295); Phosphorous 4.3 mg/dL (2.4-5.1); Potassium 3.8 mMol/L (3.4-5.1); Sodium 140 mMol/L (136-145); Total Protein 6.4 gm/dL (5.7-8.2); eGFR 27 See Note
[2024-07-08 07:21] LABS: B-Type Natriuretic Peptide > 3280 pg/mL (0-100)
[2024-07-08] MEDS: AMIODARONE HCL 200 MG TABLET PO (08:11)
[2024-07-08] MEDS: TAMSULOSIN HCL 0.4 MG CAPSULE PO (08:11)
[2024-07-08] MEDS: BUMETANIDE INJ 0.25 MG/ML VIAL 4 ML 2 MG IVP (08:12)
[2024-07-08] MEDS: EZETIMIBE 10 MG TABLET PO (08:12)
[2024-07-08] MEDS: SPIRONOLACTONE 25 MG TABLET PO (08:12)
[2024-07-08] MEDS: POTASSIUM CHLORIDE 10% 20 MEQ/15 ML UDC 10 MEQ PO (08:12)
[2024-07-08] MEDS: METOPROLOL SUCCINATE XL 25 MG TABCR PO (10:36)
--- NOTE | 2024-07-08 12:18 | PD.RESDS ---
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 hx CABG 07/04/24 22:48 Referral Registered Dietitian Routine Comment: [employer] Referral - Utilities Routine Comment: Positive screening for utility assistance needs. 07/08/24 09:36 Referral Physical Therapy Routine Comment: possible discharge Physician Instructions: Attending Provider on DC: Matthew Parnell MD Discharging Provider: Matthew Parnell MD DS: Diagnosis Problem List Completed Was Problem List Reviewed/Reconciled?: Yes Hospital Course Hospital Course Hospital course: The patient is a 59-year-old male with a past medical history of hypertension, hyperlipidemia, CHF, A-fib status post pacemaker, CKD stage IIIb, CAD status post CABG who presented to the ED on 07/04/2024 with complaints of shortness of breath, orthopnea, PND and bilateral pitting edema of 1 week duration. He also reported that he had gained 5 pounds in the past week although he endorses increasing his water intake as she had been feeling a lot more dehydrated than usual. On admission, patient was noted to be hypoxic with bilateral crackles on auscultation and 2+ pitting edema. Labs were significant for BNP greater than 3000, creatinine 2.5 and an elevated T. bili. The patient was started on IV Bumex and admitted for management of acute hypoxic respiratory failure secondary to acute decompensated heart disease. Cardiology was consulted and echocardiogram was ordered. Per cardiology recommendations, the patient was started on spironolactone 25 mg daily, continued on diuresis with IV Bumex 2 mg twice daily while monitoring renal function. Echocardiogram showed dilated cardiomyopathy with severe global hypokinesis and ejection fraction of 15% as well as severe calcific aortic stenosis and possibly group 2 pulmonary hypertension. During the course of hospitalization, the patient endorsed some difficulty in urination and after a Rodas catheter was passed was seen to have a residual volume of greater than 200 mL, with a possible diagnosis of BPH and the patient was started on tamsulosin. For the hyperbilirubinemia, a liver ultrasound was done which showed a normal gallbladder, no cholecystitis. Today, the patient's is clinically and hemodynamically stable, saturating 98% on room air and medically cleared for discharge. He will continue on Bumex 2 mg twice daily as well as spironolactone 25 mg and metoprolol 25 mg daily. 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 All questions and concerns were addressed. #Acute hypoxic respiratory failure #Acute decompensated heart disease #BIRD on CKD, cardiorenal versus postrenal #A-fib, rate controlled on amiodarone status post ICD #Possible new onset BPH #Transaminitis #NSTEMI type II Case was discussed with attending physician, Dr Lotus Parnell MD PGY-1 Status at Discharge Functional status at discharge: independent ambulation Overall status at discharge: patient is back to baseline Time Spent with Patient Time attestation: Total time spent providing and/or coordinating discharge services:more than 30minutes Exam Vital Signs Temp Pulse Resp BP Pulse Ox O2 Del Method O2 Flow Rate 98.2 F 86 18 123/79 94 L Room Air 2 07/08/24 07:57 07/08/24 10:36 07/08/24 08:00 07/08/24 10:36 07/08/24 07:57 07/08/24 07:57 07/06/24 04:00 Narrative Exam GENERAL: AAOX3 NEURO: MACHINE DEBURRER grossly intact, moves extremities x4 HEENT: Moist mucosa. Eyes open, symmetrical, & clear CARDIO: No chest pain on palpation. normal rate, irregular, systolic ejection murmur at right sternal border PULM: No noted coughing/dyspnea. Mi;d crackles bilaterally GI: Abdomen soft, nondistended, no pain on palpation. BSx4 URO/CURATOR OF MANUSCRIPTS:: No further abnormalities noted. SKIN/MSK/EXT: No wounds/rashes/edema/amputations, no pain on palpation. Pedal pulses present B/L Discharge Plan Plan Patient Disposition: HOME (Self Care) Care Plan Goals: Limit your salt and water intake to avoid exacerbation of your heart conditon Continue Bumex 2mg twice daily Continue spironolactone 25mg once daily We added Metoprolol XL 25mg, take it once daily Continue other medications as prescribed Follow up with your PCP within one week of discharge Follow up with your railway traction line worker within two weeks of discharge. You will need a TAVR evaluation as an outpatient, an education material has been given to you to understand this procedure and its indications. Prescriptions/Referrals Prescriptions/Med Rec: New clopidogrel 75 mg Tablet 75 mg PO HS 30 Days Qty: 30 0RF spironolactone 25 mg Tablet 25 mg PO QDAY 30 Days Qty: 30 0RF tamsulosin 0.4 mg Capsule 0.4 mg PO QDAY 30 Days Qty: 30 0RF metoprolol succinate 25 mg Tablet Extended Release 24 Hr 25 mg PO QDAY 30 Days Qty: 30 0RF bumetanide 2 mg tablet 2 mg PO BID 30 Days Qty: 60 0RF Continued potassium chloride [Klor-Con 10] 10 MEQ tablet extended release 20 meq PO MWF Qty: 0 lovastatin 20 MG tablet 20 mg PO HS Qty: 0 Benazepril Hcl * (LOTENSIN *) 10 MG tablet 10 mg PO QDAY Qty: 0 atorvastatin 80 mg Tablet 80 mg PO QDAY amiodarone 200 mg Tablet 200 mg PO QDAY levothyroxine 50 mcg Tablet 50 mcg PO QDAY calcitriol 0.5 mcg Capsule 0.5 mcg PO QDAY lisinopril 2.5 mg Tablet 2.5 mg PO BID B-complex with vitamin C Tablet 1 tab PO QDAY ezetimibe 10 mg Tablet 10 mg PO QDAY Discontinued clopidogrel [Plavix] 75 MG tablet 25 mg PO QDAY Qty: 0 furosemide [Lasix] 20 MG tablet 20 mg PO QDAY Qty: 0 metoprolol tartrate 25 MG tablet 25 mg PO BID Qty: 0 Sulfamethoxazole/Trimethoprim DS * (BACTRIM DS *) 1 TAB tablet 1 tab PO BID Qty: 14 0RF bumetanide [Bumex] 1 mg Tablet 1 mg PO BID Referrals: Dom Tineo MD [Primary Care Provider] - Patient/Caregiver Discharge Instructions Education Materials: Heart Failure Meds, Low-Salt Choices, Heart Failure Signs of Flare-Up, Heart Failure: Tracking Your Weight, Heart Failure Dc, Limiting Fluids Dc, TAVR Print Language: Finnish Stand Alone Forms: [place] Award Info., Patient Portal Info Letter Discharge Order Discharge Orders: Discharge (Routine); Ordered 07/08/24 Ordered By: Matthew Parnell Quality Discharge Quality Measures VTE prophylaxis Attestestation MD Attestation I reviewed labs, imaging, EKG, home medications and prior available records. Face to face evaluation was performed by me. I have personally examined the patient and discussed assessment and plan with the IM team. I reviewed the resident note and agree with the plan with exceptions as below. CHF exacerbation: In the setting of heart failure with severely reduced ejection fraction of 15%. Will discharge on p.o. Bumex 2 mg twice daily. Will discharge on lisinopril and metoprolol. Outpatient follow-up with cardiology. Atrial fibrillation: Will discharge on p.o. amiodarone. Outpatient follow-up with cardiology. BIRD versus CKD: Creatinine is 2.6 on the day of discharge. Possibly new baseline. Monitor kidney function as outpatient. Outpatient follow-up with nephrology. Acute urinary retention: Status post Rodas catheter, no removed and patient was able to void. Started tamsulosin 0.4 mg daily which we will continue upon discharge. Outpatient follow-up with urology. Time spent is 40 minutes. More than 50% of the time was spent on patient education and coordination of care.
--- NOTE | 2024-07-08 13:17 | PC.CC ---
Received call from TADEO Betancourt CM with [facility] plan requesting an update on discharge. Advised [place] that patient is expected to discharge today. She states she will follow-up with patient at home tomorrow.
--- NOTE | 2024-07-08 14:27 | ESPR_ITS ---
<Statement entered by Brenda Sanders MD - 07/11/24 08:53> I personally reviewed the findings examined the patient along with resident physician PGY 2 Dr. Nickerson agree with treatment plan recommendation patient will be followed by Dr. Tineo his own floor scraper patient has severe aortic stenosis along with low ejection fraction may be candidate for TAVR. Agree with the treatment plan recommendation as documented. Documentation for date of: 07/08/24 Subjective Subjective Interval history: This patient is a 59-year-old male with a past medical history of hypertension, hyperlipidemia, CHF, atrial fibrillation s/p PRINCIPAL INVESTIGATOR?D on amiodarone 200 mg daily, and history of CAD status post CABG [address] Tineo in [place] for cardiology, Dr. Barlow for nephrology, and PCP of [facility]. Patient stated increasing shortness of breath began 1 week ago after increasing his water uptake. 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 He noticed 3 to 5 pound weight gain over the past 5 days. Patient did had symptoms of orthopnea, shortness of breath, lower extremity swelling. He did endorse some chills from last 2 days.In the ED, patient was afebrile, had stable blood pressure and heart rate. He was saturating well on room air. Pertinent labs showed elevated BNP above 3280, troponin I 0.258. Chest x-ray showed moderate enlargement cardiac contour, prominent vascular congestion, early septal edema at lung bases. Renal function showed BUN 55 and creatinine 2.5. GFR 29. Admitted for CHF exacerbation. PMH: As above SH: Denies smoking or drinking alcohol. Allergies NKDA Home medications: Lisinopril 12.5 mg twice daily, levothyroxine 50 mcg, Bumex 1 mg twice daily, amiodarone 200 mg once a day, clopidogrel 75 mg at bedtime, atorvastatin 80 mg at bedtime and ezetimibe 10 mg daily Cardiology team consulted for heart failure exacerbation. Patient reported that he came with shortness of breath and was drinking more than usual water ended up gaining extra pounds. Patient does have extensive cardiac history and reported to follow-up with Dr. Tineo in [place]. Current recommendations are to continue Bumex 2 mg IV twice daily, continue amiodarone 200 mg once a day, started spironolactone 25 mg once a day patient's home medication.Recommended to continue Plavix and ezetimibe. Stop trending troponin I as they downtrended. Continue fluid restriction, strict IAN's and daily weight. Patient will need heart failure medication optimization before discharge. Rest of the management as per primary care team. All labs and orders were reviewed. Cardiology will follow the case closely. 07/07/2024: Patient was seen and examined at the bedside. Patient was short of breath and tachypneic. He still has some lower extremity swelling. Labs revealed leukocytosis and normocytic anemia. Kidney functions showing BUN 63 and creatinine 2.7 CKD stage IIIb. Elevated transaminases. Echocardiogram showed Dilated cardiomyopathy markedly dilated left ventricle measuring 7.9 cm severe global hypokinesis ejection fraction of 15%.Low-flow low gradient severe calcific aortic stenosis with aortic velocity 3.4 m/s peak gradient of 45 mmHg aortic valve area 0.5 cm?. There is also evidence of moderate to severe aortic regurgitation. Mitral valve thickening annulus calcification mild to moderate mitral regurgitation.Moderate tricuspid valve regurgitation with moderate pulmonary hypertension PA pressure estimated at 60 mmHg possibly group 2 pulmonary hypertension due to heart failure. Biatrial enlargement. Recommended to continue Bumex 2 mg 2 times a day, patient's floor scraper was contacted and case was discussed. Patient might benefit with TAVR considering severe aortic stenosis which may help improve patient's heart functions. Continue spironolactone.Patient continues to show good diureis.All labs and orders reviewed. 07/08/24:Patient was seen and examined at the bedside. He is still SOB and needs to follow up with his floor scraper with whom Dr Sanders had an extensive discussion for possible TAVR Labs look stable. Kidney functions shows CKD pattern .Patient is stable from cardiology stand point to be discharged today on Bumex 2 mg BID,Metoprolol XL 25 mg once a day and spironolactone 25 mg once a day. Considering reduced EF and severe aortic stensois he will benefit from TAVR possible which improve cardiac functions. Exam Vital Signs Temp Pulse Resp BP Pulse Ox O2 Del Method O2 Flow Rate 97.8 F 84 18 111/71 91 L Room Air 2 07/08/24 12:00 07/08/24 12:00 07/08/24 12:00 07/08/24 12:00 07/08/24 12:00 07/08/24 12:00 07/06/24 04:00 Narrative Exam GENERAL APPEARANCE: Patient is AOx3, generally well-appearing male in no acute distress. Saturating well on 1 L NC. HEENT: NC, AT. MMM. EOMI, clear conjunctiva, oropharynx clear. NECK: Supple without lymphadenopathy. No stiffness or restricted ROM. HEART: Regular rate and regular rhythm, normal S1/S2, mitral valve regurgitation murmur heard on apex LUNGS: CTAB, moving air well. No crackles or wheezes are heard. ABDOMEN: Soft, nontender, nondistended with good bowel sounds heard. BACK: No CVAT, no obvious deformity. EXTREMITIES: Trace edema noticed on both lower extremities. NEUROLOGICAL: Grossly nonfocal. Alert and oriented, moving all 4 extremities. CN not formally tested but appear grossly intact. Observed to ambulate with normal gait. Skin: Warm and dry without any rash. Psych: Appropriate mood and affect Objective Labs 07/08/24 05:44 07/08/24 05:44 Labs: Laboratory Results - last 24 hr 07/08/24 05:44 WBC 12.3 H RBC 4.68 Hgb 13.2 L Hct 40.6 L MCV 87 MCH 28.2 MCHC 32.5 RDW Std Deviation 54.3 H Plt Count 217 D Neut % (Auto) 84 H Lymph % (Auto) 6 L Buchanan % (Auto) 9 Eos % (Auto) 0 Baso % (Auto) 1 Neut # (Auto) 10.3 H Lymph # (Auto) 0.8 L Buchanan # (Auto) 1.1 H Eos # (Auto) 0.0 Baso # (Auto) 0.1 Immature Gran # (Auto) 0.05 H Absolute Nucleated RBC 0.00 Immature Gran % 0 Nucleated RBC % 0 Sodium 140 Potassium 3.8 Chloride 104 Carbon Dioxide 27.4 Anion Gap 9 BUN 61 H Creatinine 2.6 H Estim Creat Clear Calc 31.9 L eGFR 27 L BUN/Creatinine Ratio 23 H Glucose 133 H Calculated Osmolality 298 H Calcium 8.8 Corrected Calcium 9.1 Phosphorus 4.3 Magnesium 2.7 H Total Bilirubin 3.3 H D AST 35 H ALT 45 Alkaline Phosphatase 174 H D B-Natriuretic Peptide > 3280 H* Total Protein 6.4 Albumin 3.6 Globulin 2.8 Albumin/Globulin Ratio 1.3 Quality Measures Quality Measures VTE prophylaxis Assessment & Plan Assessment Current Active Medications: Generic Name Dose Route Start Last Admin Trade Name Freq PRN Reason Stop Dose Admin Acetaminophen 650 mg 07/04/24 20:28 07/05/24 14:36 Acetaminophen 325 Mg Tablet PO 08/03/24 20:27 650 mg Q6H PRN Administration Mild Pain 1-3 or Fever >100.4 Amiodarone HCl 200 mg 07/05/24 09:00 07/08/24 08:11 Amiodarone Hcl 200 Mg Tablet PO 08/04/24 08:59 200 mg QDAY CHARAN Administration Atorvastatin Calcium 80 mg 07/05/24 21:00 07/07/24 20:37 Atorvastatin Calcium 20 Mg Tablet PO 08/04/24 20:59 80 mg HS CHARAN Administration Bumetanide 2 mg 07/07/24 21:00 07/08/24 08:12 Bumetanide Inj 0.25 Mg/Ml Vial 4 Ml IVP 08/06/24 20:59 2 mg BID CHARAN Administration Clopidogrel Bisulfate 75 mg 07/04/24 21:00 07/07/24 20:37 Clopidogrel Bisulfate 75 Mg Tablet PO 08/03/24 20:59 75 mg HS CHARAN Administration Ezetimibe 10 mg 07/05/24 09:00 07/08/24 08:12 Ezetimibe 10 Mg Tablet PO 08/04/24 08:59 10 mg QDAY CHARAN Administration Levothyroxine Sodium 50 mcg 07/05/24 06:00 07/08/24 05:37 Levothyroxine Sodium 25 Mcg Tablet PO 08/04/24 05:59 50 mcg ACBR CHARAN Administration Melatonin 3 mg 07/05/24 21:15 07/06/24 20:23 Melatonin 3 Mg Tablet PO 08/04/24 20:59 3 mg HS PRN Administration INSOMNIA Metoprolol Succinate 25 mg 07/08/24 10:30 07/08/24 10:36 Metoprolol Succinate Xl 25 Mg Tabcr PO 08/07/24 10:29 25 mg QDAY CHARAN Administration Ondansetron HCl 4 mg 07/04/24 20:28 Ondansetron Inj 2 Mg/Ml Inj 2 Ml IV 08/03/24 20:27 Q6H PRN NAUSEA OR VOMITING Protocol Potassium Chloride 10 meq 07/05/24 09:15 07/08/24 08:12 Potassium Chloride 10% 20 Meq/15 Ml Udc PO 08/04/24 09:14 10 meq QDAY CHARAN Administration Spironolactone 25 mg 07/05/24 13:30 07/08/24 08:12 Spironolactone 25 Mg Tablet PO 08/04/24 13:29 25 mg QDAY CHARAN Administration Tamsulosin HCl 0.4 mg 07/07/24 14:00 07/08/24 08:11 Tamsulosin Hcl 0.4 Mg Capsule PO 08/06/24 13:59 0.4 mg QDAY CHARAN Administration Plan Patient is a 59-year-old male with a past medical history of hypertension, hyperlipidemia, CHF, atrial fibrillation s/p PRINCIPAL INVESTIGATOR?D on amiodarone 200 mg daily, and history of CAD status post CABG [address] Tineo in [place] for cardiology, Dr. Barlow for nephrology, and PCP of [facility] presented with worsening shortness of breath and lower extremity swelling from last 1 week due to increased water intake. Recommended to continue Bumex 2 mg IV twice daily, continue amiodarone 200 mg once a day, started spironolactone 25 mg once a day patient's home medication. # Acute on chronic CHF exacerbation #HFrEF 15% with severe aortic valve stenosis #Grade 2 PAH # History of CAD s/p stents and CABG ?Patient presented with worsening shortness of breath and lower extremity swelling. He increased intake of water and gained extra pounds. Chest x-ray showed moderate enlargement cardiac contour, prominent vascular congestion and early septal edema at lung bases. Kidney functions showed creatinine 2.5 and GFR 29. Initial elevated BNP. -Echocardiogram showed Dilated cardiomyopathy markedly dilated left ventricle measuring 7.9 cm severe global hypokinesis ejection fraction of 15%.Low-flow low gradient severe calcific aortic stenosis with aortic velocity 3.4 m/s peak gradient of 45 mmHg aortic valve area 0.5 cm?. There is also evidence of moderate to severe aortic regurgitation. Mitral valve thickening annulus calcification mild to moderate mitral regurgitation.Moderate tricuspid valve regurgitation with moderate pulmonary hypertension PA pressure estimated at 60 mmHg possibly group 2 pulmonary hypertension due to heart failure. Biatrial enlargement. Plan: ? Patient is stable from cardiology stand point to be discharged today on Bumex 2 mg BID,Metoprolol XL 25 mg once a day and spironolactone 25 mg once a day. ? Continue patient's home medication Plavix 75,atorvastatin 80 mg HS mg and ezetimibe 10 mg once a day ? Continue fluid restriction, strict IAN's and daily weight ? Replete electrolytes as necessary ? Daily labs ? Monitor vitals closely # A-fib, rate controlled on amiodarone status post PRINCIPAL INVESTIGATOR?D ? EKG showed electrical ventricular pacemaker. QTc 505. ?[id number] score 2 Plan: ? Continue amiodarone 200 mg once a day ? Replete electrolytes as necessary ? Keep magnesium above 2 and potassium above 4 ? Monitor EKG for A-fib with RVR # NSTEMI type II likely supply demand ischemia ? Initially troponin was elevated at 0.248 downtrended to 0.234 Plan: ? Monitor for signs of chest pain ? Stop trending troponin I ? Monitor EKG #Hx HTN #History of hyperlipidemia Plan: ? Holding antihypertensives [lisinopril] given BIRD on CKD ? Continue ezetimibe 10 mg once a day #Congestive hepatopathy likely related to CHF ?AST and ALT elevated with ALP elevation Plan: ? Continue IV diuresis therapy ? Trend LFTs ? Avoid hepatotoxic agents Other active problems: #BIRD on CKD stage IIIb # Normocytic hypochromic anemia # hypermagnesemia # Subclinical hypothyroidism Rest of the management as per primary care team. Thank you very much for consulting cardiology team. Patient is stable from cardiology stand point to be discharged today on Bumex 2 mg BID,Metoprolol XL 25 mg once a day and spironolactone 25 mg once a day. Considering reduced EF and severe aortic stensois he will benefit from TAVR possible which improve cardiac functions. Patient was seen and discussed with floor scraper, Dr. Tommy Nickerson MD, PGY 2
--- NOTE | 2024-07-08 14:53 | PC.NURSE ---
o2 sat on room air at rest 85%.
--- NOTE | 2024-07-08 14:57 | PC.SS ---
Addendum entered by Shavon Ortega 07/08/24 15:18: SS has sent DME order using [facility]. Original Note: At 2:54 SS was informed by bedside nurseTomas pt is requiring home O2. Pt is d/c for today.
--- NOTE | 2024-07-08 16:02 | PC.PT ---
PT eval, Pt is IND on all functional mobility including transfers and AMB without use of AD. RN made aware of need for O2.
--- NOTE | 2024-07-08 16:21 | PC.SS ---
SS provided pt with choices for DME to [facility] or [facility]. [facility] estimated time to deliver is 4-6pm. [facility] was on their way to hospital. SS informed pt and his choice is [facility] due to being local. SS provided pt with [employer] for DME choices.
== END 2024-07-08 18:36 | disposition home or self-care (01) | DRG 194 ==
LOC: SERX 18:19 → SERHOLD 20:58 → S2NX 07-06 07:28 → SERHOLD 07-07 06:03 → S2NX 07-07 06:03
PROVIDERS: Nurse Practitioner Primary Care; Student in an Organized Health Care Education/Training Program; Admitting Provider Student in an Organized Health Care Education/Training Program; Emergency Provider Emergency Medicine; PCP Internal Medicine Cardiovascular Disease; Visit Provider Internal Medicine
DX: I13.0 Hypertensive heart and chronic kidney disease with heart failure and stage 1 through stage 4 chronic kidney disease, or unspecified chronic kidney disease (principal); N18.4 Chronic kidney disease, stage 4 (severe); E11.22 Type 2 diabetes mellitus with diabetic chronic kidney disease; Z95.1 Presence of aortocoronary bypass graft; I25.10 Atherosclerotic heart disease of native coronary artery without angina pectoris; Z95.810 Presence of automatic (implantable) cardiac defibrillator; I48.20 Chronic atrial fibrillation, unspecified; J96.01 Acute respiratory failure with hypoxia; Z95.5 Presence of coronary angioplasty implant and graft; N17.9 Acute kidney failure, unspecified; E78.5 Hyperlipidemia, unspecified; K76.1 Chronic passive congestion of liver; I21.A1 Myocardial infarction type 2; I50.23 Acute on chronic systolic (congestive) heart failure; I08.3 Combined rheumatic disorders of mitral, aortic and tricuspid valves; E03.8 Other specified hypothyroidism; E83.41 Hypermagnesemia; D50.9 Iron deficiency anemia, unspecified; I25.5 Ischemic cardiomyopathy; I42.0 Dilated cardiomyopathy
CPT/HCPCS: 36415; 71045; 76705; 80053; 80061; 81001; 83690; 83735; 83880; 84100; 84439; 84443; 84484; 85025; 85610; 85730; 87040; 87086; 93005; 93306; 96374; 97161; 99285; G0378; J1200; J3490; A9270